=== PATIENT | male | born 1950 | race Caucasian/White ===

== ENCOUNTER 2018-07-03 10:29 | Outpatient (CLI) | payer MEDICARE, BC, SELFPAY ==
[2018-07-03 11:55] LABS: Hemoglobin A1C 7.3 % (4.5-6.2)
[2018-07-03 12:02] LABS: ALT 29 U/L (12-78); AST 21 U/L (15-37); Alkaline Phosphatase 105 U/L (46-116); Anion Gap 5.2 mmol/L (3-11); BUN 16 mg/dL (7-18); Bilirubin, Total 0.7 mg/dL (0.2-1.0); CO2 32.8 mmol/L (21.0-32.0); CREATININE 0.86 mg/dL (0.70-1.30); Calcium 9.1 mg/dL (8.5-10.1); Chloride 103 mmol/L (98-107); Cholesterol 165 mg/dL (50-200); Glucose 127 mg/dL (70-100); HDL Cholesterol 44 mg/dL (40-60); LDL CHOLESTEROL 99 mg/dL (<100); Potassium 4.7 mmol/L (3.5-5.1); Sodium 141 mmol/L (136-145); Total Protein 6.5 g/dL (6.4-8.2); Triglyceride 88 mg/dL (30-150)
== END 2018-07-03 10:49 ==
PROVIDERS: PCP Family Medicine; Visit Provider Family Medicine
DX: E10.39 Type 1 diabetes mellitus with other diabetic ophthalmic complication (principal); I25.10 Atherosclerotic heart disease of native coronary artery without angina pectoris
CPT/HCPCS: 36415; 80053; 80061; 83721; 83036

== ENCOUNTER 2018-07-28 07:23 | Outpatient (CLI) | payer MEDICARE, BC, SELFPAY ==
[2018-07-28 08:26] LABS: Hemoglobin A1C 7.1 % (4.5-6.2)
[2018-07-28 09:00] LABS: Glucose 140 mg/dL (70-100)
[2018-07-31 10:38] LABS: C-Peptide <0.1 ng/mL (1.1 - 4.4)
== END 2018-07-28 07:43 ==
PROVIDERS: PCP Family Medicine; Visit Provider Family Medicine
DX: E10.9 Type 1 diabetes mellitus without complications (principal)
CPT/HCPCS: 36415; 82947; 83036; 84681

== ENCOUNTER 2019-04-20 07:23 | Outpatient (CLI) | payer MEDICARE, BC, SELFPAY ==
[2019-04-20 08:18] LABS: Hemoglobin A1C 7.3 % (4.5-6.2)
[2019-04-20 09:22] LABS: ALT 24 U/L (16-63); AST 20 U/L (15-37); Albumin 3.9 g/dL (3.4-5.0); Alkaline Phosphatase 101 U/L (46-116); BUN 13 mg/dL (7-18); CREATININE 0.89 mg/dL (0.70-1.30); Calcium 8.9 mg/dL (8.5-10.1); Calculated LDL 107 mg/dL; Chloride 103 mmol/L (98-107); Cholesterol 165 mg/dL (50-200); Glucose 138 mg/dL (70-100); HDL Cholesterol 44 mg/dL (40-60); Potassium 4.4 mmol/L (3.5-5.1); Sodium 144 mmol/L (136-145); Total Protein 6.4 g/dL (6.4-8.2); Triglyceride 72 mg/dL (30-150)
[2019-04-20 09:32] LABS: Microalb ug/mg Crea 12.3 ug/mg Cr
== END 2019-04-20 07:43 ==
PROVIDERS: PCP Family Medicine; Visit Provider Family Medicine
DX: E10.39 Type 1 diabetes mellitus with other diabetic ophthalmic complication (principal); K57.92 Diverticulitis of intestine, part unspecified, without perforation or abscess without bleeding
CPT/HCPCS: 36415; 80053; 80061; 82043; 82570; 83036

== ENCOUNTER 2019-09-24 10:03 | Outpatient (CLI) | payer MEDICARE, BC, SELFPAY ==
[2019-09-24 13:24] LABS: Hemoglobin A1C 7.7 % (3.8-5.6)
== END 2019-09-24 10:23 ==
PROVIDERS: PCP Family Medicine; Visit Provider Family Medicine
DX: E11.9 Type 2 diabetes mellitus without complications (principal)
CPT/HCPCS: 36415; 83036

== ENCOUNTER 2020-04-18 08:37 | Outpatient (CLI) | payer MEDICARE, BC, SELFPAY ==
--- NOTE | 2020-04-18 08:41 | DI.CT_ITS ---
EXAM: CT ABDOMEN PELVIS W CLINICAL HISTORY: diverticulitis,k57.92,h/o abnl bone scan,compare sclerotic bone TECHNIQUE: Imaging Protocol: Axial computed tomography images with coronal and sagittal reformatted images were created and reviewed CONTRAST MATERIAL: Intravenous: Omnipaque 350 Contrast volume:99 Oral: Yes COMPARISON: CT ABD PELVIS WITH CONTRAST from 01/02/2018 FINDINGS: ABDOMEN: Lung Bases: Normal where visualized. Liver: Normal density. There are has stable hepatic lesions. Several of the lesions again show perip heral enhancement suggesting hepatic hemangiomas. No new hepatic lesions are seen. Portal, Superior Mesenteric, and Splenic Veins: Unremarkable. Gallbladder and Biliary Tract: No radiodense calculus or dilation. Pancreas: Normal density, no abnormal calcifications or inflammatory process. Spleen: Normal. Adrenals: No masses seen. Kidneys: Normal size, contour and axis. No radiodense stones or obstructive uropathy. No masses seen. Abdominal Aorta: Abdominal portion non-dilated. Atherosclerosis. Note is made of a retroaortic left renal vein. Bowel: No obstruction or bowel wall thickening. Appendix is unremarkable. Colonic diverticulosis but no evidence of acute diverticulitis. Peritoneal Cavity: No ascites, collection or mesenteric inflammatory response. Lymph Nodes: Within normal limits. Bones: There has been no change in the sclerotic appearance of the lumbar spine. Soft Tissues: Unremarkable. PELVIS: Bladder: Symmetric distention, no gross wall thickening. Reproductive Organs: Unremarkable as visualized. Lymph Nodes: Within normal limits. Bones: Please see above. IMPRESSION: 1. No change in appearance of the sclerotic areas of the lumbar spine 2. Colonic diverticulosis but no evidence of acute diverticulitis. 3. Stable hepatic lesions. RADIATION DOSE DELIVERED: 607.23mGy.cm Total DLP DATA REPOSITORY: All CT scans at this facility are submitted to the National Radiology Data Registry (NRDR) Dose Index Registry (DIR) with the [employer] (ACR). RADIATION OPTIMIZATION: All CT scans at this facility use at least one of these dose optimization te chniques: automated exposure control; mA and/or kV adjustment per patient size (includes targeted exa ms where dose is matched to clinical indication); or iterative reconstruction.
[2020-04-18] MEDS: Omnipaque 350 MG/ML 50 ML BTL IJ (09:59)
[2020-04-18] MEDS: Breeza Beverage 473 ML BTL PO ×2 (10:00→10:01)
[2020-04-18 10:12] LABS: Hemoglobin A1C 7.6 % (<5.7)
[2020-04-18 10:13] LABS: ALT 25 U/L (16-63); AST 20 U/L (15-37); Albumin 3.9 g/dL (3.4-5.0); Alkaline Phosphatase 92 U/L (46-116); Anion Gap 5.6 mmol/L (3-11); BUN 16 mg/dL (7-18); Bilirubin, Total 1.2 mg/dL (0.2-1.0); CO2 30.4 mmol/L (21.0-32.0); CREATININE 0.98 mg/dL (0.70-1.30); Calcium 8.9 mg/dL (8.5-10.1); Chloride 101 mmol/L (98-107); Glucose 202 mg/dL (74-106); Potassium 4.1 mmol/L (3.5-5.1); Sodium 137 mmol/L (136-145); Total Protein 6.8 g/dL (6.4-8.2)
[2020-04-18 11:11] LABS: COMMENT (LAB VIEW ONLY) 95.52 mg/dL; Microalb ug/mg Crea 26.8 ug/mg Cr
[2020-04-18] MEDS: Omnipaque 350 MG/ML 100 ML BTL IJ (12:14)
[2020-04-18] MEDS: Normal Saline - Diluent 50 ML VIAL IV (12:15)
[2020-04-21 12:14] LABS: Hepatitis C Ab w Rflx HCV PCR Negative (Negative)
== END 2020-04-18 08:57 ==
PROVIDERS: PCP Family Medicine; Visit Provider Family Medicine
DX: K57.30 Diverticulosis of large intestine without perforation or abscess without bleeding (principal); M89.8X8 Other specified disorders of bone, other site
CPT/HCPCS: 80053; 86803; 74177; 82043; 82570; 83036; J3490; Q9967

== ENCOUNTER 2020-12-16 09:32 | Outpatient (REF) | payer MEDICARE, BC, SELFPAY ==
[2020-12-16 14:01] LABS: ALT 41 U/L (16-63); AST 21 U/L (15-37); Alkaline Phosphatase 113 U/L (46-116); Anion Gap 3.8 mmol/L (3-11); BUN 20 mg/dL (7-18); Bilirubin, Total 0.7 mg/dL (0.2-1.0); CO2 34.2 mmol/L (21.0-32.0); Calcium 9.3 mg/dL (8.5-10.1); Calculated LDL 103 mg/dL (<100); Chloride 104 mmol/L (98-107); Cholesterol 164 mg/dL (<200); Glucose 135 mg/dL (74-106); HDL Cholesterol 43 mg/dL (40-60); Potassium 5.2 mmol/L (3.5-5.1); Sodium 142 mmol/L (136-145); Total Protein 6.6 g/dL (6.4-8.2); Triglyceride 94 mg/dL (<150)
[2020-12-16 15:00] LABS: COMMENT (LAB VIEW ONLY) 115.02 mg/dL; Microalb ug/mg Crea 16.8 ug/mg Cr
== END 2020-12-16 09:33 | disposition home or self-care (01) ==
LOC: LBN 09:32
PROVIDERS: PCP Family Medicine; Visit Provider Family Medicine
DX: E11.9 Type 2 diabetes mellitus without complications (principal); I10 Essential (primary) hypertension; I25.10 Atherosclerotic heart disease of native coronary artery without angina pectoris
CPT/HCPCS: 80053; 80061; 82043; 82570

== ENCOUNTER 2020-12-16 17:38 | Outpatient (CLI) | payer MEDICARE, BC, SELFPAY ==
--- NOTE | 2020-12-16 09:58 | DI.RAD_ITS ---
Exam(s) XR KNEE RT 3V AP,LAT,MARC EXAM: XR KNEE RT 3V AP,LAT,MARC CLINICAL HISTORY: r knee pain, M25,561. TECHNIQUE: 2D digital imaging was performed. COMPARISON: CR CHEST 2 VIEWS PA,LAT from 08/26/2015 FINDINGS: Tricompartment degenerative changes are present with joint space narrowing and periarticular spurring . The findings are most marked in the medial femoral tibial joint space. There is chondrocalcinosis . No acute fracture or dislocation. There are findings suggestive of prior ACL repair. Hypertrophi c changes are seen at the inferior patella. There does appear to be a small joint effusion. Vascula r calcifications are present. IMPRESSION: 1. No acute abnormality. 2. Degenerative changes of the knee. DATA REPOSITORY: RADIATION DOSE DELIVERED:
== END 2020-12-16 17:58 ==
PROVIDERS: PCP Family Medicine; Visit Provider Family Medicine
DX: M17.11 Unilateral primary osteoarthritis, right knee (principal)
CPT/HCPCS: 73562

== ENCOUNTER 2021-05-08 08:42 | Outpatient (CLI) | payer MEDICARE, BC, SELFPAY ==
--- NOTE | 2021-05-08 08:15 | DI.US_ITS ---
Exam(s) US LOWER EXTREMITY VENOUS RT EXAM: US LOWER EXTREMITY VENOUS RT CLINICAL HISTORY: r/o DVT to RT lower extremity,rt calf pain, m79.661. TECHNIQUE: Lower extremity venous ultrasound performed using grayscale, color-flow, and spectral Do ppler analysis. COMPARISON: CR XR KNEE RT 3V AP,LAT,MARC from 12/16/2020 CR XR KNEE RT 3V AP,LAT,MARC from 12/16/2020 FINDINGS: The common femoral, femoral and popliteal veins demonstrate normal compressibility, augmentation, and color Doppler. The posterior tibial veins are patent. No saphenous vein thrombosis or other superfi cial venous thrombosis is seen. No hematoma or Broderick's cyst is seen. In the area of the patient's p ain, there is an ovoid hypoechoic masslike area at the medial knee. It measures 4.1 x 1.8 x 3.1 cm. Previous x-ray showed severe degenerative changes of the medial femoral tibial joint and adjacent so ft tissue swelling. Findings could be related to degenerative changes. Soft tissue mass should also be considered. IMPRESSION: No evidence of DVT. 4 centimeter soft tissue area at the medial knee in the area of the patient's pain. An MRI could be p erformed for further evaluation. DATA REPOSITORY:
== END 2021-05-08 09:02 ==
PROVIDERS: PCP Family Medicine; Visit Provider Nurse Practitioner Family
DX: M79.661 Pain in right lower leg (principal); R93.6 Abnormal findings on diagnostic imaging of limbs
CPT/HCPCS: 93971

== ENCOUNTER 2021-05-12 11:50 | Outpatient (CLI) | payer MEDICARE, BC, SELFPAY ==
[2021-05-12 12:56] LABS: Abs Immature Grans 0.03 10^3/uL (0.0-0.06); Absolute Basophil Count 0.08 10^3/uL (0.0-0.2); Absolute Eosinophil Count 0.31 10^3/uL (0.0-0.7); Absolute Lymphocyte Count 1.48 10^3/uL (1.2-3.4); Absolute Monocyte Count 0.74 10^3/uL (0.1-0.8); Absolute Neutrophil Count 3.57 10^3/uL (1.2-6.7); Basophils % 1.3; HCT 49.7 % (40.0-50.0); Immature Grans % 0.5; Lymphocytes % 23.8; MCH 32.2 pg (27.0-33.0); MCHC 34.2 % (32.0-36.0); MCV 94.1 fL (80-95); MPV 10.5 fL (8.0-11.0); Monocytes % 11.9; Neutrophils % 57.5; Nucleated RBC 0 %; Platelet Count 238 10^3/uL (130-400); RBC 5.28 10^6/uL (4.36-5.78); RDW 11.4 % (11.8-14.1); RDW-SD 39.4 fL; WBC 6.21 10^3/uL (4.4-10.8)
[2021-05-12 13:02] LABS: ESR 4 mm/hr (0-20)
[2021-05-12 13:25] LABS: D-Dimer 1155 ng/mlFEU (<500)
[2021-05-12 13:31] LABS: BUN 17 mg/dL (7-18); CREATININE 0.9 mg/dL (0.70-1.30); Calcium 9.4 mg/dL (8.5-10.1); Glucose 184 mg/dL (74-106); Total Protein 6.7 g/dL (6.4-8.2)
[2021-05-12 13:32] LABS: ALT 27 U/L (16-63); AST 17 U/L (15-37); Albumin 4.2 g/dL (3.4-5.0); Alkaline Phosphatase 102 U/L (46-116); Anion Gap 3.9 mmol/L (3-11); Bilirubin, Total 1.1 mg/dL (0.2-1.0); CO2 34.1 mmol/L (21.0-32.0); Chloride 101 mmol/L (98-107); Potassium 4.9 mmol/L (3.5-5.1); Sodium 139 mmol/L (136-145)
== END 2021-05-12 11:51 | disposition home or self-care (01) ==
LOC: LOS 11:51
PROVIDERS: PCP Family Medicine; Referring Provider Family Medicine; Visit Provider Family Medicine
DX: M79.89 Other specified soft tissue disorders; R22.40 Localized swelling, mass and lump, unspecified lower limb
CPT/HCPCS: 80053; 85652; 85025; 85379; 86140

== ENCOUNTER 2021-05-13 00:52 | Outpatient (CLI) | payer MEDICARE, BC, SELFPAY ==
--- NOTE | 2021-05-13 07:15 | DI.US_ITS ---
Exam(s) US LOWER EXTREMITY VENOUS RT EXAM: US LOWER EXTREMITY VENOUS RT CLINICAL HISTORY: r leg swelling, 1st US neg,M79.89,CONCERN FOR DEVELOPING DVT TECHNIQUE: Grayscale, color, and doppler imaging of the deep venous system of the right lower extrem ity was performed. COMPARISON: CR XR KNEE RT 3V AP,LAT,MARC from 12/16/2020 US US LOWER EXTREMITY VENOUS RT from 05/08/2021 FINDINGS: There is no evidence of intraluminal thrombus and there is normal compression and augmentation demons trated within the common femoral vein, femoral vein, and popliteal vein. In the ipsilateral calf the interrogated veins also exhibit normal compression/ augmentation properti es. The ipsilateral saphenofemoral junction is patent. Again noted is a previously described mass in the medial aspect of the right knee measuring approxima tely 4 x 2 x 3 cm, unchanged from 05/08/2021. IMPRESSION: 1. No evidence of DVT in the right lower extremity. 2. Unchanged 4 x 2 x 3 cm mass on the medial aspect of the right knee. Recommend MRI for further study of this para-articular finding-mass. MRI will add both significant sensitivity as to what this finding is.
--- NOTE | 2021-05-13 14:15 | DI.CT_ITS ---
Exam(s) CT CHEST PE CTA EXAM: CT CHEST PE CTA CLINICAL HISTORY: ? pe, elevated d dimer, swelling of lower leg. TECHNIQUE: Imaging Protocol: Axial CT angiography was performed with multi-slice acquisition and mu lti-planar and/or 3D reconstructions. CONTRAST MATERIAL: Intravenous: Omnipaque 350 Contrast volume:100 ml COMPARISON: CR CHEST 2 VIEWS PA,LAT from 08/26/2015 CR LEFT SHOULDER COMPLETE from 07/20/2017 CR LEFT SHOULDER COMPLETE from 07/20/2017 CR RIGHT SHOULDER COMPLETE from 07/20/2017 CR RIGHT SHOULDER COMPLETE from 07/20/[address] ABDOMEN PELVIS W from 04/18/2020 FINDINGS: Pulmonary Arteries: No evidence of filling defect to suggest pulmonary emboli. Tracheobronchial tree: Patent where visualized. Mediastinum and Haily: No dominant adenopathy or fluid collection. Pulmonary parenchyma: No consolidation or dominant measurable mass. No architectural distortion. Pleura: No effusion or pneumothorax. Heart: The heart is not dilated. coronary artery calcifications and/or stents are seen. Aorta: Thoracic aorta non-dilated. Mild atherosclerotic changes. Upper abdomen: Unremarkable. Bones: Degenerative disc changes. Soft tissues: Mild bilateral gynecomastia. IMPRESSION: No evidence of pulmonary embolism or other acute abnormality.. RADIATION DOSE DELIVERED: 388.74mGy.cm Total DLP DATA REPOSITORY: All CT scans at this facility are submitted to the National Radiology Data Registry (NRDR) Dose Index Registry (DIR) with the [employer] (ACR). RADIATION OPTIMIZATION: All CT scans at this facility use at least one of these dose optimization te chniques: automated exposure control; mA and/or kV adjustment per patient size (includes targeted exa ms where dose is matched to clinical indication); or iterative reconstruction.
[2021-05-13] MEDS: Normal Saline - Diluent 50 ML VIAL IV (16:37)
[2021-05-13] MEDS: Omnipaque 350 MG/ML 100 ML BTL IJ (16:37)
--- NOTE | 2021-05-13 17:06 | DI.VRAD_ITS ---
PROCEDURE INFORMATION: Exam: CTA Chest With Contrast Exam date and time: 05/13/2021 2:26 PM Age: 71 years old Clinical indication: Other: ? Pe, elevated d dimer, swelling of lower leg TECHNIQUE: Imaging protocol: Computed tomographic angiography of the chest with contrast. 3D rendering (Not supervised by radiologist): MIP and/or 3D reconstructed images were created by the technologist. Contrast material: OMNIPAQUE 350; Contrast volume: 100 ml; Contrast route: INTRAVENOUS (IV); COMPARISON: CT ABDOMEN PELVIS W 04/18/2020 12:07 PM FINDINGS: Pulmonary arteries: Unremarkable. No pulmonary emboli. Aorta: Unremarkable. No aortic aneurysm. No aortic dissection. Lungs: Unremarkable. No consolidation. No masses. Pleural spaces: Unremarkable. No pneumothorax. No pleural effusion. Heart: Unremarkable. No cardiomegaly. No pericardial effusion. Lymph nodes: Unremarkable. No enlarged lymph nodes. Liver: The known enhancing hepatic lesions not well visualized on this study. Bones/joints: Unremarkable. No acute fracture. Soft tissues: Unremarkable. IMPRESSION: No evidence for pulmonary embolism. Dictated and Authenticated by: Edmundo Nelson MD. Ordering:NGOZI Duran MD
== END 2021-05-13 01:12 ==
PROVIDERS: PCP Family Medicine; Visit Provider Family Medicine
DX: M79.89 Other specified soft tissue disorders (principal); R79.89 Other specified abnormal findings of blood chemistry
CPT/HCPCS: 71275; 93971; J3490

== ENCOUNTER 2021-05-22 01:51 | Outpatient (CLI) | payer MEDICARE, BC, SELFPAY ==
--- NOTE | 2021-05-22 07:30 | DI.MRI_ITS ---
Exam(s) MR LOWER EXTREMITY RT WO/W MR LOWER JOINT RT WO/W EXAM: MR LOWER EXTREMITY RT WO/W CLINICAL HISTORY: swelling of leg,rt calf pain,. TECHNIQUE: Multiplanar multisequence MRI was performed. CONTRAST MATERIAL: IV Contrast: mL of Dotarem contrast administered. COMPARISON: Plain films dated December 22. Lower extremity ultrasound 08 May and 13 May 202 1 FINDINGS: BONES: No evidence of fracture. No evidence of suspicious bone lesion. Joints: Small to moderate-sized joint effusion with significant synovial enhancement. No definite hem osiderin deposition.. Severe degenerative changes of the medial femoral tibial joint with cartilage t hinning and irregularity as well as periarticular spurring. Severe cartilage thinning at the patello femoral joint. LIGAMENTS: Prior ACL repair appears intact. Posterior cruciate ligament and extensor mechanism appe ars intact. The medial and lateral collateral ligaments are intact. Menisci: Severe degenerative changes of the medial meniscus. Lateral meniscus shows mild degenerativ e changes. SOFT TISSUES: Adjacent lobulated fluid collections at the medial aspect of the tibia with some debris and peripheral enhancement. 1.5 x 1.9 x 4 cm. No solid mass visible. Synovial enhancement seen thro ughout.. Calcification anterior to the patella. Mild subcutaneous edema is seen in the medial aspect of the lower leg. Normal muscle signal and marrow signal in the lower leg. IMPRESSION: Severe degenerative changes of the medial femoral tibial joint. Adjacent lobulated peripherally enhan cing fluid collections could be related to pes anserine bursitis versus meniscal cysts. There is also diffuse synovial enhancement. Infection is not excluded. No solid masses identified. DATA REPOSITORY:
[2021-05-22] MEDS: Normal Saline Flush 10 ML SYR IVP (10:01)
[2021-05-22] MEDS: Gadoterate meglumine 20 ML VIAL 14 ML IVP (10:02)
== END 2021-05-22 02:11 ==
PROVIDERS: PCP Family Medicine; Visit Provider Nurse Practitioner Family
DX: M25.561 Pain in right knee (principal); M17.11 Unilateral primary osteoarthritis, right knee; M79.89 Other specified soft tissue disorders; M79.661 Pain in right lower leg
CPT/HCPCS: 73720; 73723

== ENCOUNTER → 2021-06-10 07:50 | Outpatient (BNVA) | payer MEDICARE, BC, SELFPAY | PROVIDERS: PCP Family Medicine; Referring Provider Family Medicine | DX: M17.31 Unilateral post-traumatic osteoarthritis, right knee (principal) | CPT/HCPCS: 20610; 99203; J1040 ==

== ENCOUNTER → 2021-12-04 08:18 | Outpatient (BNVA) | payer MEDICARE, BC, SELFPAY | PROVIDERS: PCP Family Medicine; Referring Provider Family Medicine; Visit Provider Physician Assistant | DX: M17.31 Unilateral post-traumatic osteoarthritis, right knee (principal); M70.51 Other bursitis of knee, right knee; M70.41 Prepatellar bursitis, right knee | CPT/HCPCS: 20610; J1030 ==

== ENCOUNTER 2022-01-22 02:29 | Outpatient (CLI) | payer MEDICARE, BC, SELFPAY ==
[2022-01-22 07:38] LABS: Hemoglobin A1C 6.9 % (<5.7)
[2022-01-22 08:11] LABS: ALT 30 U/L (16-63); AST 16 U/L (15-37); Albumin 4.1 g/dL (3.4-5.0); Alkaline Phosphatase 94 U/L (46-116); Anion Gap 7.4 mmol/L (3-11); BUN 19 mg/dL (7-18); Bilirubin, Total 0.8 mg/dL (0.2-1.0); CO2 32.6 mmol/L (21.0-32.0); Calcium 9.1 mg/dL (8.5-10.1); Calculated LDL 114 mg/dL (<100); Chloride 102 mmol/L (98-107); Cholesterol 176 mg/dL (<200); Glucose 104 mg/dL (74-106); HDL Cholesterol 49 mg/dL (40-60); Potassium 3.8 mmol/L (3.5-5.1); Sodium 142 mmol/L (136-145); Total Protein 6.9 g/dL (6.4-8.2); Triglyceride 69 mg/dL (<150)
== END 2022-01-22 02:30 | disposition home or self-care (01) ==
LOC: LBO 02:30
PROVIDERS: PCP Family Medicine; Visit Provider Family Medicine
DX: E10.39 Type 1 diabetes mellitus with other diabetic ophthalmic complication (principal)
CPT/HCPCS: 36415; 80053; 80061; 83036

== ENCOUNTER 2022-07-19 11:04 | Outpatient (REF) | payer MEDICARE, BC, SELFPAY ==
[2022-07-19 14:35] LABS: COMMENT (LAB VIEW ONLY) 112.52 mg/dL; Microalb ug/mg Crea 27.3 ug/mg Cr
== END 2022-07-19 11:05 | disposition home or self-care (01) ==
LOC: LBN 11:04
PROVIDERS: PCP Family Medicine; Visit Provider Family Medicine
DX: E11.9 Type 2 diabetes mellitus without complications (principal)
CPT/HCPCS: 82043; 82570

== ENCOUNTER 2022-10-04 13:19 | Outpatient (CLI) | payer MEDICARE, BC, SELFPAY ==
--- NOTE | 2022-10-04 11:15 | DI.RAD_ITS ---
Exam(s) XR SHOULDER RT COMPLETE 2+V EXAM: XR SHOULDER RT COMPLETE 2+V CLINICAL HISTORY: r shoulder pian, rotator cuff arthropathy, M25.511, M12.819. TECHNIQUE: 2D digital imaging was performed. COMPARISON: No exams were available for comparison FINDINGS: Four views: No evidence of fracture or dislocation or abnormal soft tissue calcifications in the mid-medial subac romial space. There is, however, small calcific density immediately adjacent to the greater tuberosity consistent w ith probable calcific tendinitis of the rotator cuff mechanism at this level. Subacromial space is n ot diminished. There are no obvious degenerative changes in the glenohumeral joint. Mild-moderate d egenerative changes in the AC joint IMPRESSION: Calcific rotator cuff tendinitis. Small calcification noted immediately adjacent to the greater tube rosity at the supraspinatus foot pad insertion site. DATA REPOSITORY: RADIATION DOSE DELIVERED:
== END 2022-10-04 13:39 ==
LOC: DI 13:20
PROVIDERS: PCP Family Medicine; Visit Provider Family Medicine
DX: M25.511 Pain in right shoulder (principal); M12.811 Other specific arthropathies, not elsewhere classified, right shoulder; M75.31 Calcific tendinitis of right shoulder
CPT/HCPCS: 73030

== ENCOUNTER 2022-12-06 08:44 | Emergency (ER) | payer MEDICARE, BC, SELFPAY ==
[2022-12-06] VITALS (52 sets, daily range): BP systolic 126–150; BP diastolic 64–86; PULSE 73–85; RESP 7–23; TEMP 36.6; O2SAT 96–99
--- NOTE | 2022-12-06 08:45 | RT.EKG_ITS ---
APPROVED REPORT Exam: Resting ECG Reason for Exam: chest pain Patient Location: E HR:81 bpm ECG Measurements Heart Rate 81 AXIS WY 146 P 71 QRSd 91 QRS 40 QT 382 T 43 QTc 443 Conclusion Sinus rhythm...normal P axis, V-rate 60- 99
--- NOTE | 2022-12-06 09:13 | ED.GENADUL_ITS ---
Discharge Plan Disposition Patient Disposition: Home Condition: Stable Discharge Details Clinical Impression: Atypical chest pain Primary Care Provider: Renee Tatum ED Provider: Lucinda Esquivel Home Meds and New Rx's Prescriptions: Continued Shingrix (PF) 50 mcg/0.5 mL suspension for reconstitution 0.5 ml IM ONCE Qty: 1 1RF Rx Instructions: as a single dose. Repeat in 2 months ciclopirox 8 % solution 1 applic topical DAILY 90 Days Qty: 6.6 5RF Rx Instructions: Apply to affected toenails daily. No-Sting Skin-Prep Towelette 1 towel topical 8XD Qty: 300 5RF Metamucil (sugar) Powder 1 tbsp PO DAILY aspirin 325 MG tablet 1 tab PO DAILY Patient Comments: 01/10/18- Holding for now, while on abx, per patient. aj ibuprofen 200 MG tablet 400 mg PO BID PRN cholecalciferol (vitamin D3) [Vitamin D3] 2,000 UNIT capsule 2,000 unit PO DAILY pb sensors 1 unit SQ q 10 days PRNQty: 3 11RF Rx Instructions: E10.8 (DME) Blood Glucose Test Strip 1 ea Miscellaneous 6 times daily Qty: 800 5RF Rx Instructions: AccuCheck Guide Test Strip. E10.65. TESTS 8X/ day. DIAGNOSIS CODE E10.65; E10.8 metoprolol succinate 25 mg tablet extended release 24 hr 25 mg PO DAILY Qty: 90 5RF lisinopril 5 mg tablet 5 mg PO DAILY Qty: 90 12RF atorvastatin 20 mg tablet 20 mg PO DAILY Qty: 90 3RF insulin aspart U-100 [Novolog U-100 Insulin aspart] 100 unit/mL solution 70 unit subcut DAILY Qty: 6 12RF Rx Instructions: VIA pump. E10.8; up to 70 units daily Discharge Instructions Instructions: Chest Pain (ED) Additional Instructions: As we discussed, your work-up here today is reassuring. However, I am still not clear what is going on during these episodes at night and would like to evaluate you further with secured entrance monitor. Please follow recommendations by respiratory therapy. Please follow-up with primary care in 1 week for reevaluation. If you develop increased pain, shortness of breath or other new/worsening symptoms please seek care urgently once again. Referrals: Renee Tatum MD, [place] [Primary Care Provider] - Discharge Orders Other Ambulatory Orders: Cardiac Event Recorder (Routine) Timeframe: 1 Day Facility: [facility] - Location: Respiratory Therapy Ordered By: Lucinda Esquivel Discharge Data Discharge Date/Time-TO BE ENTERED AT DEPARTURE: 12/06/22 14:10 Medical Decision Making Patient is a pleasant 72-year-old male, accompanied by his , presenting today with chief complaint of intermittent chest discomfort. He states that for the past 1 to 2 weeks he is been awoken at night, typically around 2 AM when he has to urinate, with chest discomfort. States that he typically is getting up to urinate and then begins noticing some substernal chest pressure. He reports that initially this was happening infrequently but is now happening nightly. Typically, this last for few minutes and he finds that certain positions help alleviate his discomfort and he is symptom-free for the rest of the day. This is not associated with times you are eating. Reports that he typically goes to bed around 10 PM and wakes up around 2. This morning comes emergency department as he began developing this chest discomfort once again after being awake. He states that he was sitting and doing wordle when he began developing the same discomfort that lasted approximately 15 to 20 minutes. Patient reports he does take full dose aspirin every morning. He did take it this morning. He denies any nausea or vomiting. No weakness. Denies any dizziness. Denies any radiation of pain. Patient does have history of cardiac stents which were placed about 15 years ago. He states that this morning the chest discomfort felt similar but that he has not had any exertional component. He states that he has been gardening and has not had any shortness of breath out of the expected and has not had any chest discomfort when exerting himself. Patient is type I diabetic and states that he has been controlling this with the pump. On exam, patient appears nontoxic. He is resting comfortably no acute distress. He is hemodynamically stable. ECG was obtained and reviewed by Dr. Williamson with normal sinus rhythm, no acute ischemic patterns appreciated. Lungs are clear, normal cardiac exam with normal splitting of S1-S2. No pain with abdominal palpation. Some mild discomfort elicited with palpation of the sternum. No rash or discoloration. No recent trauma. No lower extremity edema. Some spider veins are noted on his lower extremities, more so on the right side than the left but no swelling, calf pain, negative Homans' sign. 2+ distal pulses. At this time, while ACS is on my differential, I find this less likely as he is not having any significant exertional component is not experiencing anything when he is exerting himself. However, patient does have a history of ACS. He does not routinely see cardiology. Will screen with troponin, obtain chest x- ray. Also consider potential pericarditis as it does sound like when he is leaning forward his pain does improve when he does have this discomfort. He did recently have some cough and postnasal drip. However, patient associates this more with allergies. also reports that he has been more rundown this sounds like a chronic issue that has been worsening over the past few years as he has become more sedentary in senior care. However, with his increased fatigue, will obtain thyroid as well. He is not having any palpitations but as he is having some of these symptoms more at night, I would consider a Holter monitor if these things are unrevealing as it is unclear if he is waking d/t the symptoms or after he is up and around to the bathroom. Labs reviewed, no acute abnormoality. Awaiting repeat troponin. Reevaluated the patient, resting comfortably without recurrent symptoms. SBP now in the 120s. Repeat troponin remains within normal limits. Chest x-ray reviewed by radiologist without acute abnormalities noted. Discussed these findings with the patient. He continues to be asymptomatic. While he certainly has risk factors, particularly as he does have a history of ACS, this occurring at night after he wakes, has made less concerned for acute coronary syndrome. He is able to work in his garden and exert himself without this onset of chest discomfort. I do feel that it would be appropriate to apply a Holter monitor for further evaluation of these episodes as he does report that he has had some palpitations with these. Again, his labs are not consistent with pericarditis, his history and exam are not consistent with aortic dissection. If the monitor is normal, would consider a stress test but again, less likely. Advised patient to follow-up with primary care in the next week. Strict return precautions were given. Holter monitor was applied here by respiratory therapy. All of his questions or concerns were addressed and he is in agreement this plan. HPI General Date/Time Provider Initiated Documentation: 12/06/22 08:46 . Limitations to Documentation: no limitations . Information obtained by: patient, family (), RN notes reviewed and old records reviewed . History of Present Illness 72 year old M presents to the emergency department with the chief complaint of intermittent chest pressure at night, described as moderate, with intensity rated at 6 (currently 0, 6 at maximal). Quality is described as other (pressure), and is localized to the chest. Patient reports no radiation. Patient started experiencing this week(s) and it has been intermittent. No relieving factors improve symptom(s), Other factors that worsen symptoms (occurs at night when he wakes, normal occurrence, to use the restroom) . Patient notes no other symptoms.. Patient did receive the following treatments prior to arrival, Aspirin Related Data Home Medications Medication Instructions Recorded Confirmed aspirin 325 mg tablet 1 tab PO DAILY 10/23/12 10/04/22 ibuprofen 200 mg tablet 400 mg PO BID PRN 10/23/12 10/04/22 cholecalciferol (vitamin D3) 50 2,000 unit PO DAILY 09/20/16 10/04/22 mcg (2,000 unit) capsule (Vitamin D3) psyllium seed (sugar) oral powder 1 tbsp PO DAILY 09/16/20 10/04/22 (Metamucil (sugar) oral powder) blood sugar diagnostic (Blood #800 strips 11/16/21 10/04/22 Glucose Test strips) ciclopirox 8 % topical solution 1 applic topical DAILY 05/11/22 10/04/22 onychomycosis 3 months #6.6 mL varicella-zoster glycoE vacc-[id number] 0.5 ml IM ONCE #1 ea 07/19/22 10/04/22 adj(PF) 50 mcg/0.5 mL IM susp, kit (Shingrix (PF)) hexamethyldisiloxane-acrylate 1 towel topical 8XD #300 ea 10/04/22 10/04/22 copolymers towelette (No-Sting Skin-Prep towelette) lisinopril 5 mg tablet 5 mg PO DAILY #90 tab-caps 10/22/22 metoprolol succinate 25 mg 25 mg PO DAILY #90 tabs 10/22/22 tablet,extended release 24 hr atorvastatin 20 mg tablet 20 mg PO DAILY #90 tab-caps 10/25/22 insulin aspart U-100 100 unit/mL 70 unit (0.7 mL) subcut DAILY #6 11/23/22 subcutaneous solution (Novolog vials U-100 Insulin aspart) Previous Rx's Medication Instructions Recorded blood sugar diagnostic (Blood #800 strips 11/16/21 Glucose Test strips) ciclopirox 8 % topical solution 1 applic topical DAILY 05/11/22 onychomycosis 3 months #6.6 mL varicella-zoster glycoE vacc-[id number] 0.5 ml IM ONCE #1 ea 07/19/22 adj(PF) 50 mcg/0.5 mL IM susp, kit (Shingrix (PF)) hexamethyldisiloxane-acrylate 1 towel topical 8XD #300 ea 10/04/22 copolymers towelette (No-Sting Skin-Prep towelette) lisinopril 5 mg tablet 5 mg PO DAILY #90 tab-caps 10/22/22 metoprolol succinate 25 mg 25 mg PO DAILY #90 tabs 10/22/22 tablet,extended release 24 hr atorvastatin 20 mg tablet 20 mg PO DAILY #90 tab-caps 10/25/22 insulin aspart U-100 100 unit/mL 70 unit (0.7 mL) subcut DAILY #6 11/23/22 subcutaneous solution (Novolog vials U-100 Insulin aspart) Allergies Allergy/AdvReac Type Severity Reaction Status Date / Time Opioids - Morphine Analogues AdvReac Verified 12/06/22 08:52 pollen Allergy Uncoded 12/06/22 08:52 General Stated Complaint: Chest Pain SANJAY: 3 Review of Systems Constitutional Constitutional: Reports as per HPI, Denies chills, Denies fever(s), Denies lethargy and Denies poor appetite Eyes Eyes: Denies change in vision ENT Ears, Nose, Mouth, and Throat: Denies dizziness Cardiovascular Cardiovascular: Reports as per HPI and Denies dyspnea Respiratory Respiratory: Reports as per HPI, Denies chest congestion, Denies cough, Denies pain with cough and Denies dyspnea Gastrointestinal Gastrointestinal: Reports as per HPI, Denies abdominal pain, Denies diarrhea, Denies nausea and Denies vomiting Genitourinary Genitourinary: Denies system reviewed and no additional complaints, except as documented (denies change in urinary habits) Musculoskeletal Musculoskeletal: Reports as per HPI and Denies back pain Integumentary/Breasts Skin/Breast: Reports as per HPI and Denies rash Neurologic Neurologic: Reports as per HPI and Denies dizziness PFSH All Active Problems (Updated 12/06/22 @ 13:36 by KIN Crystal) Palpitations (Acute) Atypical chest pain (Acute) Type 1 diabetes mellitus (Acute) Rotator cuff arthropathy (Acute) Shoulder pain, right (Acute) Pain, foot (Acute) Corns and callosities (Acute) Nail dystrophy (Acute) Pes anserinus bursitis of right knee (Acute) Steroid injection: 12/04/2021 Eczema (Acute) Flexion deformity, left finger joints (Acute) Skin lesion (Acute) Post-traumatic osteoarthritis of right knee (Acute) Steroid injection: 06/10/2021 Elevated d-dimer (Acute) Swelling of lower leg (Acute) Mass of knee (Acute) Asthma (Acute) Liver cyst (Acute 09/03/15) Type 1 diabetes mellitus with ophthalmic manifestation (Acute 06/10/14) Hyperlipidemia (Acute 02/20/13) Essential hypertension (Acute 06/20/13) Diverticulitis (Acute 01/02/18) Degenerative arthritis of cervical spine (Acute 11/28/14) Chronic left shoulder pain (Acute 07/19/17) Background diabetic retinopathy (Acute) 04/22/15; [facility]; MILD 04/22/16; [facility]; MILD 04/26/17; [facility]; MILD 11/03/17; [facility]; MILD ASCVD (arteriosclerotic cardiovascular disease) (Acute 02/20/13) ECHO EF 60%-LV SEPTAL WALL HYPOKINESIS Medical History Abnormal CT scan (01/10/18) Asthma Carcinoma of prostate S/P RADICAL PROSTATECTOMY Cough Intervertebral disc disorder of lumbar region with myelopathy Kidney stone 06/06/18 calcium oxylate s/p surgery Kidney stone (06/06/08) Left wrist pain Liver cyst 09/03/15 CT/US/MRI Melena 06/06/08 neg colonoscopy Melena (06/06/08) Pre-op evaluation 05/05/15 Unilateral inguinal hernia right; s/p surgery Unilateral inguinal hernia (02/20/13) Vocal cord dysfunction (02/04/15) Surgical History History of intravascular stent placement History of intravascular stent placement Prostatectomy (~2002) Repair of inguinal hernia (01/23/13) DR. PINO; RIGHT Repair, ACL S/P ACL repair S/P inguinal hernia repair 07/04/12 Dr. Pino; right S/P prostatectomy 07/04/02 S/P vasectomy Status post inguinal hernia repair Status post prostatectomy Status post repair of anterior cruciate ligament Status post vasectomy Stent placement Vasectomy Family History Father Heart disease Maternal Grandfather Heart disease Paternal Grandfather Heart disease Mother Heart disease Brother Substance abuse Alcohol abuse Depression Heart disease Hyperlipidemia Son No problems noted. Daughter No problems noted. Daughter No problems noted. Maternal Grandmother No problems noted. Paternal Grandmother No problems noted. Social History Smoking/Tobacco Use Status: Former Tobacco Use Quit Date: 07/04/79 Smoking risk assessment performed?: Yes Alcohol Intake: current Alcohol Intake frequency: a few times a week Alcohol type: beer Drug use: Never Substance use type: marijuana Caregiver/Support person: No Household members: spouse Housing: house Communication Needs: None Pets and animals: Yes Pets and animals: cat(s) and dog(s) Do you think of yourself as: straight/heterosexual Current gender identity: male What is your relationship status?: Panel score (0-1 are the most socially isolated patients): 1 Special vianey needs: No Seatbelt use: always Helmet use: Yes Helmet use: sometimes 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 Do you feel safe in your relationship?: Yes Exam Const General: cooperative, healthy appearing, comfortable, no acute distress and well developed Nutritional Appearance: average body habitus and well nourished Orientation: alert, awake and oriented x3 HENMT Head: normal to inspection Ears: hearing grossly normal bilaterally Mouth: moist mucous membranes Chest Chest: normal inspection of the chest, normal palpation of entire chest wall and no crepitus Resp Effort & Inspection: normal respiratory effort, able to speak in complete sentences and no respiratory distress Auscultation: clear to auscultation bilaterally, no rales, no rhonchi and no wheezes Cardio Rate: regular rate Rhythm: regular rhythm Heart Sounds: S1 normal and S2 normal GI Inspection: normal to inspection, no edema and non-distended Palpation: soft, no hepatosplenomegaly, not firm, no guarding, not rigid and nontender Auscultation: normal bowel sounds Skin General skin exam: no rashes or lesions noted Trauma: no lacerations or abrasions Neuro General: patient alert, patient awake and patient oriented x3 Cognition: normal cognition Speech: speech normal Gait: normal gait Extrem General: normal to inspection, capillary refill normal, no pedal edema, no calf tenderness and normal gait Psych Appearance: grossly normal and well kempt Mental Status: mental status grossly normal Speech and Movement: speech and movement normal Course Vital Signs Vital signs: Vital Signs Temperature 36.6 C 12/06/22 08:46 Pulse 85 12/06/22 08:46 Respiratory Rate 16 12/06/22 08:46 Blood Pressure 150/79 H 12/06/22 08:46 Pulse Oximetry 98 12/06/22 08:46 Temperature 36.6 C 12/06/22 08:46 Temperature Source Skin 12/06/22 08:46 Pulse 85 12/06/22 08:46 Respiratory Rate 16 12/06/22 08:46 Blood Pressure 150/79 H 12/06/22 08:46 Blood Pressure Position Sitting 12/06/22 08:46 Pulse Oximetry 98 12/06/22 08:46 Oxygen Delivery Method Room Air 12/06/22 08:46 Oxygen Flow Rate 0 12/06/22 08:46 Pain Level 6 12/06/22 08:46
[2022-12-06 09:31] LABS: Abs Immature Grans 0.03 10^3/uL (0.0-0.06); Absolute Basophil Count 0.07 10^3/uL (0.0-0.2); Absolute Eosinophil Count 0.25 10^3/uL (0.0-0.7); Absolute Lymphocyte Count 1.07 10^3/uL (1.2-3.4); Absolute Monocyte Count 0.65 10^3/uL (0.1-0.8); Absolute Neutrophil Count 3.57 10^3/uL (1.2-6.7); Basophils % 1.2; Eosinophils % 4.4; HCT 49.1 % (40.0-50.0); Immature Grans % 0.5; MCHC 34.6 % (32.0-36.0); MCV 92 fL (80-95); MPV 10.1 fL (8.0-11.0); Monocytes % 11.5; Neutrophils % 63.4; Platelet Count 212 10^3/uL (130-400); RBC 5.32 10^6/uL (4.36-5.78); RDW 11.6 % (11.8-14.1); RDW-SD 39.3 fL; WBC 5.64 10^3/uL (4.4-10.8)
[2022-12-06 09:35] LABS: ESR 2 mm/hr (0-20)
--- NOTE | 2022-12-06 09:38 | DI.RAD_ITS ---
Exam(s) XR CHEST 2V PA LATERAL EXAM: XR CHEST 2V PA LATERAL CLINICAL HISTORY: CP TECHNIQUE: 2D digital imaging was performed of the chest. Two images were obtained. PA and lateral views were obtained. COMPARISON: CR CHEST 2 VIEWS PA,LAT from 08/26/2015 FINDINGS: MEDIASTINUM: Normal. HEART: Normal. PULMONARY VASCULATURE: Normal. LUNGS: Clear. PLEURAL SPACE: No pleural effusion or pneumothorax. BONE:Within normal limits for the patient's age. OTHER FINDINGS:Normal. IMPRESSION: No acute pulmonary findings. DATA REPOSITORY: RADIATION DOSE DELIVERED:
[2022-12-06 09:56] LABS: ALT 25 U/L (16-63); AST 18 U/L (15-37); Alkaline Phosphatase 114 U/L (46-116); Anion Gap 4.2 mmol/L (3-11); BUN 14 mg/dL (7-18); Bilirubin, Total 0.8 mg/dL (0.2-1.0); C-Reactive Protein 0.15 mg/dL (0.0-0.3); CO2 32.8 mmol/L (21.0-32.0); CREATININE 0.9 mg/dL (0.70-1.30); Calcium 9.1 mg/dL (8.5-10.1); Chloride 102 mmol/L (98-107); Estimated GFR 91.31 (mL/min/1.73m2); Glucose 171 mg/dL (74-106); Potassium 4.1 mmol/L (3.5-5.1); Sodium 139 mmol/L (136-145); Total Protein 6.9 g/dL (6.4-8.2); Troponin I < 50 ng/L (<or=60)
[2022-12-06 12:51] LABS: Troponin I < 50 ng/L (<or=60)
== END 2022-12-06 14:10 | disposition home or self-care (01) ==
PROVIDERS: Emergency Provider Physician Assistant; PCP Family Medicine
DX: R00.2 Palpitations; R07.89 Other chest pain; R06.02 Shortness of breath
CPT/HCPCS: 36415; 80053; 85652; 87426; 93005; 93270; 99283; 71046; 83735; 84484; 85025; 86140; 93010

== ENCOUNTER 2022-12-13 05:13 | Emergency (ER) | payer MEDICARE, BC, SELFPAY ==
[2022-12-13] VITALS (38 sets, daily range): BP systolic 69–140; BP diastolic 40–114; PULSE 0–91; RESP 10–26; TEMP 36.6; O2SAT 93–99
--- NOTE | 2022-12-13 05:15 | RT.EKG_ITS ---
APPROVED REPORT Exam: Resting ECG Reason for Exam: CHEST PAIN Patient Location: E HR:87 bpm ECG Measurements Heart Rate 87 AXIS NV 156 P 68 QRSd 91 QRS 24 QT 349 T 28 QTc 421 Conclusion Sinus rhythm...normal P axis, V-rate 60- 99 Probable left atrial enlargement...P >50mS, <-0.10mV V1 Low voltage, extremity leads...all extremity leads <0.5mV Physician: no stemi, unchanged from prior 12/06/22
--- NOTE | 2022-12-13 05:50 | ED.GENADUL_ITS ---
Discharge Plan Discharge Details Chief Complaint: Chest Pain Primary Care Provider: Renee Tatum ED Provider: Ray Jerome Home Meds and New Rx's Prescriptions: No Action Shingrix (PF) 50 mcg/0.5 mL suspension for reconstitution 0.5 ml IM ONCE Qty: 1 1RF Rx Instructions: as a single dose. Repeat in 2 months ciclopirox 8 % solution 1 applic topical DAILY 90 Days Qty: 6.6 5RF Rx Instructions: Apply to affected toenails daily. No-Sting Skin-Prep Towelette 1 towel topical 8XD Qty: 300 5RF Metamucil (sugar) Powder 1 tbsp PO DAILY aspirin 325 MG tablet 1 tab PO DAILY Patient Comments: 01/10/18- Holding for now, while on abx, per patient. aj ibuprofen 200 MG tablet 400 mg PO BID PRN cholecalciferol (vitamin D3) [Vitamin D3] 2,000 UNIT capsule 2,000 unit PO DAILY pb sensors 1 unit SQ q 10 days PRNQty: 3 11RF Rx Instructions: E10.8 (DME) Blood Glucose Test Strip 1 ea Miscellaneous 6 times daily Qty: 800 5RF Rx Instructions: AccuCheck Guide Test Strip. E10.65. TESTS 8X/ day. DIAGNOSIS CODE E10.65; E10.8 metoprolol succinate 25 mg tablet extended release 24 hr 25 mg PO DAILY Qty: 90 5RF lisinopril 5 mg tablet 5 mg PO DAILY Qty: 90 12RF atorvastatin 20 mg tablet 20 mg PO DAILY Qty: 90 3RF insulin aspart U-100 [Novolog U-100 Insulin aspart] 100 unit/mL solution 70 unit subcut DAILY Qty: 6 12RF Rx Instructions: VIA pump. E10.8; up to 70 units daily Medical Decision Making 72-year-old male with a past medical history type 1 diabetes currently on insulin, coronary artery disease with 3 stents 10 years ago, hypertension, who presents today for evaluation of chest pain. Patient woke up at around 2 or 3 this morning, had tightness in his chest, heaviness, and an achy sensation. He has had the symptoms before, including on 12/06/2022 when he came in for evaluation of similar but more mild symptoms. Work-up at that time was negative. Today symptoms were similar but became more severe as the morning went on, escalating to an 8 out of 10. Symptoms had not gone to this extent in the past. He made the decision to come to the ER for further assessment. By the time he arrived to the ER his pain improved to around a 4 out of 10 without intervention. He denies any exertional discomfort, and for that matter states that he has performed multiple exertional activities over the last week or so without any significant discomfort. No new shortness of breath. He denies any tearing or ripping sensation. He does currently have a Zio patch on which has been recording him. He denies any other complaints at this time. No other modifying factors. He did have a bowel movement earlier this morning which was unremarkable. Exam demonstrates a well-appearing male, no acute distress. Vital signs stable. EKG shows no evidence of STEMI at this time. Symptoms are certainly atypical for ACS, however with the patient's history of cardiac disease this still obviously remains high in the differential. We will evaluate for this, get a D- dimer as well, evaluate for signs of heart strain, monitor closely and reassess. 7:44 AM Laboratory work-up demonstrates no white count bandemia or left shift. D-dimer is elevated. Troponin is normal. Thyroid function stable. proBNP is normal. Patient's chest pain seems to come and go. It does not appear to be particularly improved by nitroglycerin. We will get CTA imaging of the chest. Patient will be signed out to my colleague Dr. Vizcarra for follow-up on labs and imaging. HPI General Date/Time Provider Initiated Documentation: 12/13/22 05:25 . HPI Narrative: 72-year-old male with a past medical history type 1 diabetes currently on insulin, coronary artery disease with 3 stents 10 years ago, hypertension, who presents today for evaluation of chest pain. Patient woke up at around 2 or 3 this morning, had tightness in his chest, heaviness, and an achy sensation. He has had the symptoms before, including on 12/06/2022 when he came in for evaluation of similar but more mild symptoms. Work-up at that time was negative. Today symptoms were similar but became more severe as the morning went on, escalating to an 8 out of 10. Symptoms had not gone to this extent in the past. He made the decision to come to the ER for further assessment. By the time he arrived to the ER his pain improved to around a 4 out of 10 without intervention. He denies any exertional discomfort, and for that matter states that he has performed multiple exertional activities over the last week or so without any significant discomfort. No new shortness of breath. He denies any tearing or ripping sensation. He does currently have a Zio patch on which has been recording him. He denies any other complaints at this time. No other modifying factors. He did have a bowel movement earlier this morning which was unremarkable. Related Data Home Medications Medication Instructions Recorded Confirmed aspirin 325 mg tablet 1 tab PO DAILY 10/23/12 12/13/22 ibuprofen 200 mg tablet 400 mg PO BID PRN 10/23/12 12/13/22 cholecalciferol (vitamin D3) 50 2,000 unit PO DAILY 09/20/16 12/13/22 mcg (2,000 unit) capsule (Vitamin D3) psyllium seed (sugar) oral powder 1 tbsp PO DAILY 09/16/20 12/13/22 (Metamucil (sugar) oral powder) blood sugar diagnostic (Blood #800 strips 11/16/21 12/13/22 Glucose Test strips) ciclopirox 8 % topical solution 1 applic topical DAILY 05/11/22 12/13/22 onychomycosis 3 months #6.6 mL varicella-zoster glycoE [id number] 0.5 ml IM ONCE #1 ea 07/19/22 12/13/22 adj(PF) 50 mcg/0.5 mL IM susp, kit (Shingrix (PF)) hexamethyldisiloxane-acrylate 1 towel topical 8XD #300 ea 10/04/22 12/13/22 copolymers towelette (No-Sting Skin-Prep towelette) lisinopril 5 mg tablet 5 mg PO DAILY #90 tab-caps 10/22/22 12/13/22 metoprolol succinate 25 mg 25 mg PO DAILY #90 tabs 10/22/22 12/13/22 tablet,extended release 24 hr atorvastatin 20 mg tablet 20 mg PO DAILY #90 tab-caps 10/25/22 12/13/22 insulin aspart U-100 100 unit/mL 70 unit (0.7 mL) subcut DAILY #6 11/23/22 12/13/22 subcutaneous solution (Novolog vials U-100 Insulin aspart) Previous Rx's Medication Instructions Recorded blood sugar diagnostic (Blood #800 strips 11/16/21 Glucose Test strips) ciclopirox 8 % topical solution 1 applic topical DAILY 05/11/22 onychomycosis 3 months #6.6 mL varicella-zoster glycoE [id number] 0.5 ml IM ONCE #1 ea 07/19/22 adj(PF) 50 mcg/0.5 mL IM susp, kit (Shingrix (PF)) hexamethyldisiloxane-acrylate 1 towel topical 8XD #300 ea 10/04/22 copolymers towelette (No-Sting Skin-Prep towelette) lisinopril 5 mg tablet 5 mg PO DAILY #90 tab-caps 10/22/22 metoprolol succinate 25 mg 25 mg PO DAILY #90 tabs 10/22/22 tablet,extended release 24 hr atorvastatin 20 mg tablet 20 mg PO DAILY #90 tab-caps 10/25/22 insulin aspart U-100 100 unit/mL 70 unit (0.7 mL) subcut DAILY #6 11/23/22 subcutaneous solution (Novolog vials U-100 Insulin aspart) Allergies Allergy/AdvReac Type Severity Reaction Status Date / Time Opioids - Morphine Analogues AdvReac Verified 12/06/22 08:52 pollen Allergy Uncoded 12/06/22 08:52 General SANJAY: 3 Review of Systems All systems reviewed & are unremarkable except as noted in HPI and below PFSH All Active Problems Palpitations (Acute) Atypical chest pain (Acute) Type 1 diabetes mellitus (Acute) Rotator cuff arthropathy (Acute) Shoulder pain, right (Acute) Pain, foot (Acute) Corns and callosities (Acute) Nail dystrophy (Acute) Pes anserinus bursitis of right knee (Acute) Steroid injection: 12/04/2021 Eczema (Acute) Flexion deformity, left finger joints (Acute) Skin lesion (Acute) Post-traumatic osteoarthritis of right knee (Acute) Steroid injection: 06/10/2021 Elevated d-dimer (Acute) Swelling of lower leg (Acute) Mass of knee (Acute) Asthma (Acute) Liver cyst (Acute 09/03/15) Type 1 diabetes mellitus with ophthalmic manifestation (Acute 06/10/14) Hyperlipidemia (Acute 02/20/13) Essential hypertension (Acute 06/20/13) Diverticulitis (Acute 01/02/18) Degenerative arthritis of cervical spine (Acute 11/28/14) Chronic left shoulder pain (Acute 07/19/17) Background diabetic retinopathy (Acute) 04/22/15; [facility]; MILD 04/22/16; [facility]; MILD 04/26/17; [facility]; MILD 11/03/17; [facility]; MILD ASCVD (arteriosclerotic cardiovascular disease) (Acute 02/20/13) ECHO EF 60%-LV SEPTAL WALL HYPOKINESIS Medical History Abnormal CT scan (01/10/18) Asthma Carcinoma of prostate S/P RADICAL PROSTATECTOMY Cough Intervertebral disc disorder of lumbar region with myelopathy Kidney stone 06/06/18 calcium oxylate s/p surgery Kidney stone (06/06/08) Left wrist pain Liver cyst 09/03/15 CT/US/MRI Melena 06/06/08 neg colonoscopy Melena (06/06/08) Pre-op evaluation 05/05/15 Unilateral inguinal hernia right; s/p surgery Unilateral inguinal hernia (02/20/13) Vocal cord dysfunction (02/04/15) Surgical History History of intravascular stent placement History of intravascular stent placement Prostatectomy (~2002) Repair of inguinal hernia (01/23/13) DR. PINO; RIGHT Repair, ACL S/P ACL repair S/P inguinal hernia repair 07/04/12 Dr. Pino; right S/P prostatectomy 07/04/02 S/P vasectomy Status post inguinal hernia repair Status post prostatectomy Status post repair of anterior cruciate ligament Status post vasectomy Stent placement Vasectomy Family History Father Heart disease Maternal Grandfather Heart disease Paternal Grandfather Heart disease Mother Heart disease Brother Substance abuse Alcohol abuse Depression Heart disease Hyperlipidemia Son No problems noted. Daughter No problems noted. Daughter No problems noted. Maternal Grandmother No problems noted. Paternal Grandmother No problems noted. Social History Smoking/Tobacco Use Status: Former Tobacco Use Quit Date: 07/04/79 Smoking risk assessment performed?: Yes Alcohol Intake: current Alcohol Intake frequency: a few times a week Alcohol type: beer Drug use: Never Substance use type: marijuana Caregiver/Support person: No Household members: spouse Housing: house Communication Needs: None Pets and animals: Yes Pets and animals: cat(s) and dog(s) Do you think of yourself as: straight/heterosexual Current gender identity: male What is your relationship status?: Panel score (0-1 are the most socially isolated patients): 1 Special vianey needs: No Seatbelt use: always Helmet use: Yes Helmet use: sometimes Drive intox or ride w/intox auto crane driver: No Do you feel safe at home: Yes Do you feel safe in your relationship?: Yes Exam Narrative Exam Narrative: 1.Const: Well-nourished, Well-developed, appearing stated age 2.Eyes: PERRL, no conjunctival injection, and symmetrical lids. 3.ENT: Atraumatic external nose and ears. Moist MM. Neck: Symmetric, trachea midline, No thyromegaly. 4.CVS: +S1/S2, No murmurs or gallops. Peripheral pulses 2+ and equal in all extremities. Brisk capillary refill in all extremities. 5.RESP: Unlabored respiratory effort. Clear to auscultation bilaterally. No wheezes rales or rhonchi 6.GI: Soft, Nontender/Nondistended, No hepatosplenomegaly. No guarding or rebound. 7.MSK: Normocephalic/Atraumatic, Extremities w/o deformity or ttp No cyanosis or clubbing, Normal movement of all extremities 8.Skin: Warm, Dry. No rashes or lesions. 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 Sensation grossly intact, no focal neurologic deficits. 10.Psych: (AAO) x3. Appropriate mood and affect
[2022-12-13 06:18] LABS: Abs Immature Grans 0.03 10^3/uL (0.0-0.06); Absolute Basophil Count 0.05 10^3/uL (0.0-0.2); Absolute Eosinophil Count 0.28 10^3/uL (0.0-0.7); Absolute Lymphocyte Count 1.41 10^3/uL (1.2-3.4); Absolute Monocyte Count 0.71 10^3/uL (0.1-0.8); Absolute Neutrophil Count 2.87 10^3/uL (1.2-6.7); Basophils % 0.9; Eosinophils % 5.2; HCT 48.7 % (40.0-50.0); HGB 16.4 g/dL (13.5-17.5); Immature Grans % 0.6; Lymphocytes % 26.4; MCH 31.5 pg (27.0-33.0); MCHC 33.7 % (32.0-36.0); MCV 94 fL (80-95); MPV 10.4 fL (8.0-11.0); Monocytes % 13.3; Neutrophils % 53.6; Platelet Count 213 10^3/uL (130-400); RBC 5.21 10^6/uL (4.36-5.78); RDW 11.6 % (11.8-14.1); RDW-SD 39.8 fL; WBC 5.35 10^3/uL (4.4-10.8)
[2022-12-13] MEDS: Aspirin 81 MG CHEW 324 MG CH (06:24)
[2022-12-13] MEDS: Normal Saline 1,000 ML 1000 ML IV ×2 (06:25→07:55)
[2022-12-13 06:34] LABS: INR 0.9 (0.9-1.1); Prothrombin Time 9.6 sec (9.3-11.0)
[2022-12-13 06:44] LABS: ALT 24 U/L (16-63); AST 14 U/L (15-37); Albumin 3.8 g/dL (3.4-5.0); Alkaline Phosphatase 141 U/L (46-116); Anion Gap 5.4 mmol/L (3-11); BUN 26 mg/dL (7-18); Bilirubin, Total 0.4 mg/dL (0.2-1.0); CO2 30.6 mmol/L (21.0-32.0); CREATININE 1.1 mg/dL (0.70-1.30); Calcium 8.9 mg/dL (8.5-10.1); Chloride 101 mmol/L (98-107); Estimated GFR 71.77 (mL/min/1.73m2); Glucose 262 mg/dL (74-106); NT-proBNP 68 pg/mL (<300); Potassium 3.9 mmol/L (3.5-5.1); Sodium 137 mmol/L (136-145); TSH (W/Ref FT4) 2.23 uIU/mL (0.36-3.74); Total Protein 6.6 g/dL (6.4-8.2); Troponin I < 50 ng/L (<or=60)
--- NOTE | 2022-12-13 06:45 | RT.EKG_ITS ---
APPROVED REPORT Exam: Resting ECG Reason for Exam: chest pain Patient Location: E HR:83 bpm ECG Measurements Heart Rate [address] 159 P 61 QRSd 95 QRS 29 QT 364 T 28 QTc 428 Conclusion Sinus rhythm...normal P axis, V-rate 60- 99 Low voltage, extremity leads...all extremity leads <0.5mV Physician: no stemi
[2022-12-13] MEDS: nitroGLYcerin 0.4 MG TAB SL ×2 (06:50→07:44)
--- NOTE | 2022-12-13 06:51 | NUR.NOTE ---
Nursing Note: LATE ENTRY Pt comes to the ED c/o CP for several weeks on and off. the pt is currently wearing a holter monitor due to his symptoms. tonight he stated that the pain got intense and began to fell not well. Denies SOB or any neuro deficits.
[2022-12-13 06:54] LABS: D-Dimer 943 ng/mlFEU (<500)
--- NOTE | 2022-12-13 07:00 | DI.CT_ITS ---
Exam(s) CT CHEST PE CTA EXAM: CT CHEST PE CTA CLINICAL HISTORY: chest pain, elevated dimer, r/o pe. TECHNIQUE: Imaging Protocol: CT angiography of the chest was performed using pulmonary embolus homer col. Multi planar reconstructions were performed. CONTRAST MATERIAL: Intravenous: Omnipaque 350 Contrast volume: 100 cc COMPARISON: CT CT ABDOMEN PELVIS W from 04/18/[address] CHEST PE CTA from 05/13/2021 FINDINGS: CHEST: PULMONARY ARTERIES: There are no intraluminal filling defects to suggest acute pulmonary emboli. LUNGS: There are no infiltrates nor evidence of pulmonary infarction.. There are no pleural effusions . MEDIASTINUM: There is no hilar nor mediastinal adenopathy. Visualized thyroid unremarkable. CARDIAC: Heart size is upper normal. There is no pericardial effusion.Caliber of the thoracic aorta is within normal limits. There is no significant shift of the interventricular septum. PARTIALLY VISUALIZED UPPERMOST ABDOMEN: Indeterminate lesion noted in the left hepatic lobe which may be an hemangioma but requires further more dedicated imaging OSSEOUS: No significant osseous lesions.No fractures.. IMPRESSION: 1. No evidence of acute pulmonary emboli. No evidence of pulmonary infarction.No pleural effusions. No infiltrates. 2. Part of the liver is included in the field of view and again reveals what is probably hemangioma i n the left hepatic lobe, previously documented multiple prior CT scans. Report called by myself to ER physician. RADIATION DOSE DELIVERED: 359.51mGy.cm Total DLP DATA REPOSITORY: All CT scans at this facility are submitted to the National Radiology Data Registry (NRDR) Dose Index Registry (DIR) with the [employer] (ACR). RADIATION OPTIMIZATION: All CT scans at this facility use at least one of these dose optimization te chniques: automated exposure control; mA and/or kV adjustment per patient size (includes targeted exa ms where dose is matched to clinical indication); or iterative reconstruction.
--- NOTE | 2022-12-13 07:04 | NUR.NOTE ---
Nursing Note: pt states he continues to ave chest pain, second EKG obtained and given to MD, offered pt a second nitro SL tab, pt declined.
[2022-12-13] MEDS: ACETAMINOPHEN 1,000 MG/100 ML BTL 400 MG IVPB (07:40)
--- NOTE | 2022-12-13 07:50 | NUR.NOTE ---
Nursing Note: pt asked hank gannonther nitro, okay per MD, given by nurse and documented in MAR. PT then started c/o feeling like he was going to pass out, BP was low @ 69/40, 84/49, and 83/56; MD aware, 1000ml bolus of NS started.
[2022-12-13] MEDS: Omnipaque 350 MG/ML 500 ML BTL-Imaging package IJ (08:17)
[2022-12-13] MEDS: Normal Saline - Diluent 50 ML VIAL IJ (08:23)
--- NOTE | 2022-12-13 08:26 | W.EDPROG ---
Date of service: 12/13/22 Time of Service: 08:26 Medical Decision Making I received signout on this 72-year-old male with a history of coronary artery disease and remote prior stents now in the emergency department with chest pain. Patient had no reported change with nitroglycerin. He had an elevated D-dimer and is currently pending a CTA of his chest to assess for PE. His initial troponin is negative and his repeat troponin will be drawn now. I have ordered a stress test on this patient. He has a Holter monitor in place. His chest pain has reportedly woken him up from sleep. Will reassess following CTA repeat troponin and stress test. 8:50 AM Patient in no PE on a CTA chest. He did have a probable hemangioma. Radiology reported that this looks stable. I updated the patient on this incidental finding. He reported that he had previously been aware of this. I have ordered a stress test. Patient feels weak. We will give him a piece of toast prior to stress test. 9:18 AM Patient's troponin returned positive. Will treat him with 324 mg of aspirin and reach out to the transfer center at [facility] [place] [place]. Patient reported that he was stented 10 years ago at [facility] [place] [place]. He has a history of diabetes hypertension hyperlipidemia. He is a former tobacco smoker. He does not have any chest pain at the moment. Given his chest pain at rest and concern for unstable angina/started on heparin drip. 1037 a.m. I spoke with Ave Melo from [facility] [place] [place] cardiology who graciously accepted the patient on behalf of Dr. Vines. She requested 600 mg clopidogrel load. She advised that given that the patient had received IV contrast today that the patient will be appropriate for a heart healthy diet and that patient would likely go for a left heart catheterization tomorrow. We will wait to transfer patient until bed placement called. 3:45 PM Patient was hemodynamically stable during his time in the ED. He was transferred to [facility] [place] [place]. Sign Out Sign Out Data: Sign Out Comment: Chest pain, history of cardiac disease, follow-up on CTA and repeat troponin. Would recommend admission/ops Last updated by Ray Jerome DO at 12/13/22 07:51 Discharge Plan Discharge Details Chief Complaint: Chest Pain Clinical Impression: Non-ST elevation ND (NSTEMI) Primary Care Provider: Renee Tatum ED Provider: Dereck Vizcarra [place] Meds and New Rx's Prescriptions: No Action Shingrix (PF) 50 mcg/0.5 mL suspension for reconstitution 0.5 ml IM ONCE Qty: 1 1RF Rx Instructions: as a single dose. Repeat in 2 months ciclopirox 8 % solution 1 applic topical DAILY 90 Days Qty: 6.6 5RF Rx Instructions: Apply to affected toenails daily. No-Sting Skin-Prep Towelette 1 towel topical 8XD Qty: 300 5RF Metamucil (sugar) Powder 1 tbsp PO DAILY aspirin 325 MG tablet 1 tab PO DAILY Patient Comments: 01/10/18- Holding for now, while on abx, per patient. aj ibuprofen 200 MG tablet 400 mg PO BID PRN cholecalciferol (vitamin D3) [Vitamin D3] 2,000 UNIT capsule 2,000 unit PO DAILY pb sensors 1 unit SQ q 10 days PRNQty: 3 11RF Rx Instructions: E10.8 (DME) Blood Glucose Test Strip 1 ea Miscellaneous 6 times daily Qty: 800 5RF Rx Instructions: AccuCheck Guide Test Strip. E10.65. TESTS 8X/ day. DIAGNOSIS CODE E10.65; E10.8 metoprolol succinate 25 mg tablet extended release 24 hr 25 mg PO DAILY Qty: 90 5RF lisinopril 5 mg tablet 5 mg PO DAILY Qty: 90 12RF atorvastatin 20 mg tablet 20 mg PO DAILY Qty: 90 3RF insulin aspart U-100 [Novolog U-100 Insulin aspart] 100 unit/mL solution 70 unit subcut DAILY Qty: 6 12RF Rx Instructions: VIA pump. E10.8; up to 70 units daily
[2022-12-13 09:16] LABS: Troponin I 97 ng/L (<or=60)
[2022-12-13] MEDS: Heparin in 0.45% NaCl 25,000 UNIT/250 ML BAG 8 UNIT IV (09:27)
[2022-12-13 09:54] LABS: PTT Activated 25.4 sec (21.5-31.9)
--- NOTE | 2022-12-13 10:10 | NUR.NOTE ---
Nursing Note: Pt in bed and on monitor at time of report. Heparin infusing properly. This RN introduced self and spoke with pt and SO. Pt reporting 0/10 CP now. Pt c/o ALMONTE. Pt given warm blankets for comfort. Pt thanked this RN for update and care.
[2022-12-13] MEDS: Clopidogrel 300 MG TAB 600 MG PO (10:52)
[2022-12-13] MEDS: Ondansetron 4 MG/2 ML VIAL IVP (10:52)
--- NOTE | 2022-12-13 11:48 | NUR.NOTE ---
Nursing Note: Blood sugar 162, pt continues to deny chest pain. Heparin infusing appropriately.
--- NOTE | 2022-12-13 12:08 | NUR.NOTE ---
Nursing Note: Report given to Moshe ANDRADE at [facility] room 461.
== END 2022-12-13 12:09 | disposition short-term general hospital (02) ==
PROVIDERS: Student in an Organized Health Care Education/Training Program; Emergency Provider Emergency Medicine; PCP Family Medicine
DX: I21.4 Non-ST elevation (NSTEMI) myocardial infarction (principal); R07.9 Chest pain, unspecified; E10.9 Type 1 diabetes mellitus without complications; I10 Essential (primary) hypertension; I25.10 Atherosclerotic heart disease of native coronary artery without angina pectoris; Z95.5 Presence of coronary angioplasty implant and graft
CPT/HCPCS: 36415; 36416; 71275; 80053; 82962; 93005; 96365; 96366; 96375; 99285; 83880; 84443; 84484; 85025; 85379; 85610; 85730; 93010; J0131; J2405

== ENCOUNTER 2022-12-29 11:01 | Outpatient (RCR) | payer MEDICARE, BC, SELFPAY | END 2022-12-31 23:59 | disposition home or self-care (01) | LOC: CR 11:01 | PROVIDERS: PCP Family Medicine; Visit Provider Internal Medicine Cardiovascular Disease | DX: I25.10 Atherosclerotic heart disease of native coronary artery without angina pectoris (principal) ==

== ENCOUNTER 2022-12-31 11:49 | Outpatient (CLI) | payer MEDICARE, BC, SELFPAY ==
--- NOTE | 2022-12-31 12:31 | W.CARDEVENT ---
Date of service: 12/31/22 Time of Service: 12:31 Cardiac Event Recorder Referring Provider:: Renee Tatum Indications:: Palpitations Cardiac Event Note: This is a cardiac event monitor ordered for palpitations. Patient was monitored for a total period of 6 days. Subsequently he was hospitalized at [facility] for coronary artery bypass grafting Predominant rhythm was sinus with an average heart rate of 83. Minimum was 51, maximum 108 Atrial and ventricular ectopic beats were recorded There was one episode of what appeared to be nonsustained ventricular tachycardia, occurring at 4 AM There was no atrial fibrillation, no high-grade block, no pauses greater than 3 seconds
== END 2022-12-31 11:50 | disposition home or self-care (01) ==
LOC: CARDOPNVT 11:49
PROVIDERS: PCP Family Medicine; Visit Provider Internal Medicine Cardiovascular Disease
DX: R00.2 Palpitations (principal); I49.1 Atrial premature depolarization; I49.3 Ventricular premature depolarization
CPT/HCPCS: 93248

== ENCOUNTER 2023-01-14 10:59 | Outpatient (RCR) | payer MEDICARE, BC, SELFPAY ==
--- NOTE | 2023-01-14 11:00 | HOLTER_ITS ---
APPROVED REPORT Conclusion This is a 48-hour Holter monitor ordered for tachycardia Rhythm throughout is sinus with an average heart rate of 67. Minimum was 57, maximum 86 There were very rare isolated atrial and ventricular ectopic beats There was no atrial fibrillation, no SVT, no pauses greater than 3 seconds
== END 2023-01-31 23:59 | disposition home or self-care (01) ==
LOC: CARDOPNVT 10:59
PROVIDERS: PCP Family Medicine; Visit Provider Family Medicine
DX: R00.0 Tachycardia, unspecified (principal); Z95.1 Presence of aortocoronary bypass graft
CPT/HCPCS: 93227; 93225; 93226

== ENCOUNTER 2023-01-28 09:00 | Outpatient (RCR) | payer MEDICARE, BC, SELFPAY ==
--- NOTE | 2023-01-26 09:45 | RT.EKG_ITS ---
APPROVED REPORT Exam: Resting ECG Reason for Exam: cardiac rehab baseline, peaked p waves on tele Patient Location: O HR:65 bpm ECG Measurements Heart Rate 65 AXIS IA 174 P 61 QRSd 86 QRS 83 QT 676 T 32 QTc 704 Conclusion Sinus rhythm...normal P axis, V-rate 50- 99 Left atrial enlargement...P, P'>60mS, <-0.15mV V1 Borderline right axis deviation...QRS axis ( 81, 90) Low voltage, extremity leads...all extremity leads <0.5mV Nondiagnostic ST-T abnormalities
== END 2023-01-31 23:59 | disposition home or self-care (01) ==
LOC: CR 09:00
PROVIDERS: PCP Family Medicine; Visit Provider Internal Medicine Cardiovascular Disease
DX: Z51.89 Encounter for other specified aftercare (principal); I25.10 Atherosclerotic heart disease of native coronary artery without angina pectoris; I25.2 Old myocardial infarction; I10 Essential (primary) hypertension
CPT/HCPCS: S9472

== ENCOUNTER 2023-02-02 09:13 | Outpatient (RCR) | payer MEDICARE, BC, SELFPAY ==
--- NOTE | 2023-02-02 09:15 | HOLTER_ITS ---
APPROVED REPORT Conclusion This is a 48-hour Holter monitor ordered for coronary artery disease Rhythm throughout was sinus with an average heart rate of 72. Minimum was 60, maximum 97 A total of 5 isolated premature ventricular contractions was seen There were 5 isolated atrial premature beats There was no atrial fibrillation, no SVT, no high-grade AV block, no pauses greater than 3 seconds No patient symptoms were reported
== END 2023-03-03 23:59 | disposition home or self-care (01) ==
LOC: CARDOPNVT 09:13
PROVIDERS: PCP Family Medicine; Visit Provider Family Medicine
DX: I25.10 Atherosclerotic heart disease of native coronary artery without angina pectoris (principal)
CPT/HCPCS: 93225; 93226

== ENCOUNTER 2023-03-02 09:00 | Outpatient (RCR) | payer MEDICARE, BC, SELFPAY | END 2023-03-03 23:59 | disposition home or self-care (01) | LOC: CR 09:00 | PROVIDERS: PCP Family Medicine; Visit Provider Internal Medicine Cardiovascular Disease | DX: I25.10 Atherosclerotic heart disease of native coronary artery without angina pectoris (principal); Z95.1 Presence of aortocoronary bypass graft; Z51.89 Encounter for other specified aftercare | CPT/HCPCS: S9472 ==

== ENCOUNTER 2023-04-01 09:00 | Outpatient (RCR) | payer MEDICARE, BC, SELFPAY | END 2023-04-02 23:59 | disposition home or self-care (01) | LOC: CR 09:00 | PROVIDERS: PCP Family Medicine; Visit Provider Internal Medicine Cardiovascular Disease | DX: I25.2 Old myocardial infarction (principal); I25.10 Atherosclerotic heart disease of native coronary artery without angina pectoris; Z51.89 Encounter for other specified aftercare | CPT/HCPCS: S9472 ==

== ENCOUNTER 2023-04-11 09:00 | Outpatient (RCR) | payer MEDICARE, BC, SELFPAY ==
[2023-04-19 10:09] VITALS: BP 127/77; PULSE 80
== END 2023-05-03 23:59 | disposition home or self-care (01) ==
LOC: CR 09:00
PROVIDERS: PCP Family Medicine; Visit Provider Internal Medicine Cardiovascular Disease
DX: I25.10 Atherosclerotic heart disease of native coronary artery without angina pectoris (principal); Z95.1 Presence of aortocoronary bypass graft; Z51.89 Encounter for other specified aftercare
CPT/HCPCS: S9472

== ENCOUNTER 2023-05-05 03:12 | Outpatient (CLI) | payer MEDICARE, BC, SELFPAY ==
[2023-05-05 12:19] LABS: HCT 52.4 % (40.0-50.0); MCH 27.9 pg (27.0-33.0); MCHC 32.4 % (32.0-36.0); MCV 86 fL (80-95); Platelet Count 197 10^3/uL (130-400); RDW-SD 50.8 fL; WBC 6.46 10^3/uL (4.4-10.8)
[2023-05-05 12:54] LABS: ALT 22 U/L (16-63); AST 19 U/L (15-37); Albumin 4.1 g/dL (3.4-5.0); Alkaline Phosphatase 107 U/L (46-116); BUN 21 mg/dL (7-18); Bilirubin, Total 1.1 mg/dL (0.2-1.0); CREATININE 1.1 mg/dL (0.70-1.30); Calcium 9.4 mg/dL (8.5-10.1); Calculated LDL 109 mg/dL (<100); Chloride 102 mmol/L (98-107); Cholesterol 169 mg/dL (<200); Estimated GFR 71.32 (mL/min/1.73m2); Glucose 130 mg/dL (74-106); HDL Cholesterol 50 mg/dL (40-60); Potassium 4.5 mmol/L (3.5-5.1); Sodium 141 mmol/L (136-145); Triglyceride 52 mg/dL (<150)
== END 2023-05-05 03:13 | disposition home or self-care (01) ==
PROVIDERS: PCP Family Medicine; Visit Provider Family Medicine
DX: E10.9 Type 1 diabetes mellitus without complications (principal); I10 Essential (primary) hypertension; I25.10 Atherosclerotic heart disease of native coronary artery without angina pectoris; Z95.1 Presence of aortocoronary bypass graft
CPT/HCPCS: 36415; 80053; 80061; 85027

== ENCOUNTER 2023-06-02 10:02 | Outpatient (RCR) | payer SELFPAY ==
[2023-05-04 00:12] VITALS: BP 140/84; PULSE 74
[2023-05-05 10:32] VITALS: BP 124/72; PULSE 76
[2023-05-10 10:13] VITALS: BP 118/75; PULSE 79
[2023-05-17 10:20] VITALS: BP 155/92; PULSE 77
[2023-05-19 10:46] VITALS: BP 149/83; PULSE 88
[2023-05-24 10:06] VITALS: BP 136/76; PULSE 78
[2023-05-31 10:12] VITALS: BP 131/81; PULSE 80
[2023-06-02 10:13] VITALS: BP 122/79; PULSE 78
== END 2023-06-02 23:59 | disposition home or self-care (01) ==
LOC: CR 10:02
PROVIDERS: PCP Family Medicine; Visit Provider Internal Medicine Cardiovascular Disease
DX: R69 Illness, unspecified (principal)

== ENCOUNTER 2023-06-23 12:45 | Outpatient (CLI) | payer MEDICARE, BC, SELFPAY ==
[2023-06-23 11:54] LABS: Hemoglobin A1C 7.4 % (<5.7)
== END 2023-06-23 12:46 | disposition home or self-care (01) ==
LOC: LBO 12:45
PROVIDERS: PCP Family Medicine; Visit Provider Family Medicine
DX: E11.9 Type 2 diabetes mellitus without complications (principal)
CPT/HCPCS: 36415; 83036

== ENCOUNTER 2023-06-28 10:00 | Outpatient (RCR) | payer SELFPAY ==
[2023-06-03 00:21] VITALS: BP 140/84; PULSE 74
[2023-06-07 10:00] VITALS: BP 122/77; PULSE 81
[2023-06-09 10:13] VITALS: BP 133/83; PULSE 79
[2023-06-21 09:59] VITALS: BP 137/86; PULSE 84
[2023-06-23 10:14] VITALS: BP 125/78; PULSE 80
[2023-06-28 14:55] VITALS: BP 110/72; PULSE 77
== END 2023-07-03 23:59 | disposition home or self-care (01) ==
LOC: CR 10:00
PROVIDERS: PCP Family Medicine; Visit Provider Internal Medicine Cardiovascular Disease
DX: R69 Illness, unspecified (principal)

== ENCOUNTER 2023-08-02 09:59 | Outpatient (RCR) | payer SELFPAY ==
[2023-07-04 00:21] VITALS: BP 140/84; PULSE 74
[2023-07-05 10:05] VITALS: BP 129/71; PULSE 84
[2023-07-14 11:20] VITALS: BP 109/68; PULSE 78
[2023-07-21 10:07] VITALS: BP 121/73; PULSE 74
[2023-07-26 10:04] VITALS: BP 138/74; PULSE 70
[2023-07-28 10:00] VITALS: BP 120/72; PULSE 74
[2023-08-02 09:57] VITALS: BP 132/79; PULSE 77
== END 2023-08-03 23:59 | disposition home or self-care (01) ==
LOC: CR 09:59
PROVIDERS: PCP Family Medicine; Visit Provider Internal Medicine Interventional Cardiology
DX: R69 Illness, unspecified (principal)

== ENCOUNTER → 2023-08-23 07:55 | Outpatient (BNVA) | payer MEDICARE, BC, SELFPAY | PROVIDERS: PCP Family Medicine; Referring Provider Family Medicine; Visit Provider Podiatrist | DX: L60.3 Nail dystrophy (principal); L84 Corns and callosities; B35.1 Tinea unguium; E11.51 Type 2 diabetes mellitus with diabetic peripheral angiopathy without gangrene | CPT/HCPCS: 99214 ==

== ENCOUNTER 2023-09-01 10:11 | Outpatient (RCR) | payer SELFPAY ==
[2023-08-04 00:25] VITALS: BP 140/84; PULSE 74
[2023-08-04 10:00] VITALS: BP 111/72; PULSE 79
[2023-08-09 11:08] VITALS: BP 126/72; PULSE 74
[2023-08-11 10:17] VITALS: BP 141/81; PULSE 71
[2023-08-16 10:08] VITALS: BP 131/78; PULSE 76
[2023-08-18 10:25] VITALS: BP 140/79; PULSE 73; O2SAT 96
[2023-08-23 13:09] VITALS: BP 143/85; PULSE 79
[2023-08-25 10:33] VITALS: BP 135/78; PULSE 73
[2023-08-30 10:16] VITALS: BP 138/78; PULSE 73
[2023-09-01 12:53] VITALS: BP 145/82; PULSE 74
== END 2023-09-01 23:59 | disposition home or self-care (01) ==
LOC: CR 10:11
PROVIDERS: PCP Family Medicine; Visit Provider Internal Medicine Cardiovascular Disease
DX: R69 Illness, unspecified (principal)

== ENCOUNTER 2023-09-20 04:43 | Outpatient (CLI) | payer MEDICARE, BC, SELFPAY ==
[2023-09-20 09:36] LABS: Hemoglobin A1C 6.9 % (<5.7)
[2023-09-20 09:38] LABS: ALT 30 U/L (16-63); AST 22 U/L (15-37); Alkaline Phosphatase 104 U/L (46-116); Anion Gap 7.1 mmol/L (3-11); BUN 20 mg/dL (7-18); Bilirubin, Total 1.1 mg/dL (0.2-1.0); CO2 33.9 mmol/L (21.0-32.0); Calcium 8.9 mg/dL (8.5-10.1); Calculated LDL 60 mg/dL (<100); Chloride 103 mmol/L (98-107); Cholesterol 119 mg/dL (<200); Estimated GFR 79.97 (mL/min/1.73m2); Glucose 107 mg/dL (74-106); HDL Cholesterol 46 mg/dL (40-60); Potassium 4.4 mmol/L (3.5-5.1); Sodium 144 mmol/L (136-145); Total Protein 6.8 g/dL (6.4-8.2); Triglyceride 65 mg/dL (<150)
== END 2023-09-20 04:44 | disposition home or self-care (01) ==
LOC: LBO 04:44
PROVIDERS: PCP Family Medicine; Visit Provider Internal Medicine Cardiovascular Disease
DX: I10 Essential (primary) hypertension (principal); E11.9 Type 2 diabetes mellitus without complications
CPT/HCPCS: 36415; 80053; 80061; 83036

== ENCOUNTER 2023-09-29 09:56 | Outpatient (RCR) | payer SELFPAY ==
[2023-09-02 00:09] VITALS: BP 140/84; PULSE 74
[2023-09-06 10:03] VITALS: BP 135/82; PULSE 82
[2023-09-08 10:03] VITALS: BP 143/96; PULSE 77
[2023-09-13 10:06] VITALS: BP 141/86; PULSE 81
[2023-09-15 10:05] VITALS: BP 116/68; PULSE 73
[2023-09-20 13:09] VITALS: BP 121/73; PULSE 77
[2023-09-22 10:03] VITALS: BP 129/86; PULSE 76
[2023-09-27 10:09] VITALS: BP 126/85; PULSE 77
[2023-09-29 10:22] VITALS: BP 126/75; PULSE 72
== END 2023-10-02 23:59 | disposition home or self-care (01) ==
LOC: CR 09:56
PROVIDERS: PCP Family Medicine; Visit Provider Internal Medicine Cardiovascular Disease
DX: R69 Illness, unspecified (principal)

== ENCOUNTER → 2023-10-06 11:26 | Outpatient (CLI) | payer MEDICARE, BC, SELFPAY ==
--- NOTE | 2023-10-06 09:45 | DI.RAD_ITS ---
Exam(s) XR FOOT RT COMPLETE EXAM: XR FOOT RT COMPLETE CLINICAL HISTORY: M79.671 pain in rt foot, lateral 5th MT pain ? sesamoid vs bunion. TECHNIQUE: 2D digital imaging was performed. Three views. COMPARISON: No exams were available for comparison FINDINGS: BONES: No acute fracture is present. No bony destructive lesion is seen. JOINTS: No dislocation present. Moderate to severe degenerative changes of the 1st MTP joint with pe riarticular spurring. No hallux valgus. No significant degenerative changes elsewhere. SOFT TISSUE: Vascular calcifications. IMPRESSION: Moderate severe degenerative changes of the 1st MTP joint. DATA REPOSITORY: RADIATION DOSE DELIVERED:
== END ==
PROVIDERS: PCP Family Medicine; Visit Provider Family Medicine
DX: M79.671 Pain in right foot (principal); M77.41 Metatarsalgia, right foot; M19.071 Primary osteoarthritis, right ankle and foot
CPT/HCPCS: 73630

== ENCOUNTER 2023-11-01 10:24 | Outpatient (RCR) | payer SELFPAY ==
[2023-10-04 10:52] VITALS: BP 136/82; PULSE 64
[2023-10-06 11:34] VITALS: BP 148/95; PULSE 81
[2023-10-11 10:15] VITALS: BP 141/91; PULSE 81
[2023-10-13 09:53] VITALS: BP 127/80; PULSE 78
[2023-10-18 10:09] VITALS: BP 139/75; PULSE 71
[2023-10-20 09:56] VITALS: BP 123/80; PULSE 78
[2023-10-25 10:03] VITALS: BP 115/71; PULSE 72
[2023-10-27 10:41] VITALS: BP 156/87; PULSE 71
[2023-11-01 10:26] VITALS: BP 119/69; PULSE 80
== END 2023-11-01 23:59 | disposition home or self-care (01) ==
LOC: CR 10:24
PROVIDERS: PCP Family Medicine; Visit Provider Internal Medicine Cardiovascular Disease
DX: R69 Illness, unspecified (principal)

== ENCOUNTER 2023-12-01 10:03 | Outpatient (RCR) | payer SELFPAY ==
[2023-11-02 00:13] VITALS: BP 119/69; PULSE 80
[2023-11-03 09:57] VITALS: BP 115/73; PULSE 80; O2SAT 98
[2023-11-08 11:28] VITALS: BP 120/77; PULSE 76
[2023-11-10 10:58] VITALS: BP 118/72; PULSE 73
[2023-11-15 10:19] VITALS: BP 122/68; PULSE 71
[2023-11-17 10:34] VITALS: BP 112/71; PULSE 68
[2023-11-22 10:16] VITALS: BP 141/81; PULSE 69
[2023-11-24 10:10] VITALS: BP 134/86; PULSE 81
[2023-11-29 10:08] VITALS: BP 134/79; PULSE 73
[2023-12-01 10:08] VITALS: BP 162/93; PULSE 69
== END 2023-12-02 23:59 | disposition home or self-care (01) ==
LOC: CR 10:03
PROVIDERS: PCP Family Medicine; Visit Provider Internal Medicine Cardiovascular Disease
DX: R69 Illness, unspecified (principal)

== ENCOUNTER 2023-12-29 10:22 | Outpatient (RCR) | payer SELFPAY ==
[2023-12-03 00:22] VITALS: BP 119/69; PULSE 80
[2023-12-06 10:36] VITALS: BP 125/74; PULSE 72
[2023-12-08 10:19] VITALS: BP 129/74; PULSE 80
[2023-12-13 11:55] VITALS: BP 135/76; PULSE 72
[2023-12-15 12:26] VITALS: BP 148/97; PULSE 77
[2023-12-20 13:19] VITALS: BP 111/68; PULSE 78
[2023-12-27 10:25] VITALS: BP 140/84; PULSE 80
[2023-12-29 10:12] VITALS: BP 132/87; PULSE 75
== END 2024-01-01 23:59 | disposition home or self-care (01) ==
LOC: CR 10:22
PROVIDERS: PCP Family Medicine; Visit Provider Internal Medicine Cardiovascular Disease
DX: R69 Illness, unspecified (principal)

== ENCOUNTER 2024-01-26 10:00 | Outpatient (RCR) | payer SELFPAY ==
[2024-01-03 10:31] VITALS: BP 153/89; PULSE 66
[2024-01-10 09:57] VITALS: BP 115/73; PULSE 74
[2024-01-17 10:17] VITALS: BP 134/85; PULSE 71
[2024-01-19 13:33] VITALS: BP 124/78; PULSE 77
[2024-01-24 11:17] VITALS: BP 132/79; PULSE 69
[2024-01-26 10:15] VITALS: BP 129/74; PULSE 71
== END 2024-02-01 23:59 | disposition home or self-care (01) ==
LOC: CR 10:00
PROVIDERS: PCP Family Medicine; Visit Provider Internal Medicine Cardiovascular Disease
DX: R69 Illness, unspecified (principal)

== ENCOUNTER → 2024-02-07 07:59 | Outpatient (BNVA) | payer MEDICARE, BC, SELFPAY | PROVIDERS: PCP Family Medicine; Referring Provider Family Medicine; Visit Provider Podiatrist | DX: L60.3 Nail dystrophy (principal); E10.39 Type 1 diabetes mellitus with other diabetic ophthalmic complication; L84 Corns and callosities; E10.43 Type 1 diabetes mellitus with diabetic autonomic (poly)neuropathy; B35.1 Tinea unguium; B07.0 Plantar wart | CPT/HCPCS: 17110 ==

== ENCOUNTER 2024-03-01 10:10 | Outpatient (RCR) | payer SELFPAY ==
[2024-02-02 00:33] VITALS: BP 129/74; PULSE 71
[2024-02-02 10:00] VITALS: BP 122/81; PULSE 68
[2024-02-07 13:47] VITALS: BP 121/73; PULSE 71
[2024-02-09 10:28] VITALS: BP 139/86; PULSE 67
[2024-02-16 08:08] VITALS: BP 120/66; PULSE 69
[2024-02-23 10:03] VITALS: BP 136/81; PULSE 77
[2024-02-28 10:02] VITALS: BP 131/82; PULSE 82
[2024-03-01 10:29] VITALS: BP 133/80; PULSE 68
== END 2024-03-03 23:59 | disposition home or self-care (01) ==
LOC: CR 10:10
PROVIDERS: PCP Family Medicine; Visit Provider Internal Medicine Cardiovascular Disease
DX: R69 Illness, unspecified (principal)

== ENCOUNTER 2024-03-08 15:35 | Outpatient (CLI) | payer MEDICARE, BC, SELFPAY ==
--- NOTE | 2024-03-08 14:45 | DI.RAD_ITS ---
Exam(s) XR CHEST 2V PA LATERAL EXAM: XR CHEST 2V PA LATERAL CLINICAL HISTORY: sob, s/p cabg, h/o asthma R06.02. TECHNIQUE: 2D digital imaging was performed. COMPARISON: CR XR CHEST 2V PA LATERAL from 12/06/[address] CHEST PE CTA from 12/13/2022 FINDINGS: 2 views: There is been interval sternotomy. There is sternotomy wires now evident as well as evidence of CABG . Heart size remains normal and the mediastinum is not widened. Lungs are clear. No infiltrates nor pleural effusions. No evidence of pulmonary edema. No fractures. IMPRESSION: No acute pulmonary findings. Interval sternotomy/CABG. Heart size remains normal. No CHF. DATA REPOSITORY: RADIATION DOSE DELIVERED:
== END 2024-03-08 15:55 ==
LOC: DI 15:36
PROVIDERS: PCP Family Medicine; Visit Provider Family Medicine
DX: R06.02 Shortness of breath (principal)
CPT/HCPCS: 71046

== ENCOUNTER 2024-03-29 10:00 | Outpatient (RCR) | payer SELFPAY ==
[2024-03-04 00:31] VITALS: BP 129/74; PULSE 71
[2024-03-13 10:13] VITALS: BP 148/80; PULSE 69
[2024-03-15 10:30] VITALS: BP 141/80; PULSE 75
[2024-03-20 10:55] VITALS: BP 133/78; PULSE 74
[2024-03-22 10:56] VITALS: BP 137/84; PULSE 79
[2024-03-27 10:27] VITALS: BP 142/84; PULSE 66
[2024-03-29 10:03] VITALS: BP 127/77; PULSE 75
== END 2024-04-02 23:59 | disposition home or self-care (01) ==
LOC: CR 10:00
PROVIDERS: PCP Family Medicine; Visit Provider Internal Medicine Cardiovascular Disease
DX: R69 Illness, unspecified (principal)

== ENCOUNTER 2024-04-02 15:35 | Outpatient (REF) | payer MEDICARE, BC, SELFPAY ==
[2024-04-02 12:46] LABS: COMMENT (LAB VIEW ONLY) 53.79 mg/dL; Microalb ug/mg Crea 17.5 ug/mg Cr
== END 2024-04-02 15:36 | disposition home or self-care (01) ==
LOC: LBN 15:35
PROVIDERS: PCP Family Medicine; Visit Provider Family Medicine
DX: E11.9 Type 2 diabetes mellitus without complications (principal); Z23 Encounter for immunization; E11.51 Type 2 diabetes mellitus with diabetic peripheral angiopathy without gangrene
CPT/HCPCS: 82043; 82570

== ENCOUNTER 2024-04-23 02:17 | Outpatient (CLI) | payer MEDICARE, BC, SELFPAY ==
[2024-04-23 12:37] LABS: HCT 48.7 % (40.0-50.0); HGB 16.8 g/dL (13.5-17.5); MCH 32.8 pg (27.0-33.0); MCHC 34.5 % (32.0-36.0); MCV 95 fL (80-95); MPV 10.7 fL (8.0-11.0); Platelet Count 181 10^3/uL (130-400); RBC 5.12 10^6/uL (4.36-5.78); RDW 11.9 % (11.8-14.1); RDW-SD 41.4 fL; WBC 4.85 10^3/uL (4.4-10.8)
[2024-04-23 13:11] LABS: ALT 32 U/L (16-63); AST 24 U/L (15-37); Albumin 3.8 g/dL (3.4-5.0); Alkaline Phosphatase 100 U/L (46-116); Anion Gap 5.3 mmol/L (3-11); BUN 17 mg/dL (7-18); Bilirubin, Total 0.99 mg/dL (0.2-1.0); CO2 32.7 mmol/L (21.0-32.0); CREATININE 0.9 mg/dL (0.70-1.30); Chloride 108 mmol/L (98-107); Estimated GFR 90.18 (mL/min/1.73m2); Glucose 103 mg/dL (74-106); Sodium 146 mmol/L (136-145); Total Protein 6.3 g/dL (6.4-8.2)
== END 2024-04-23 02:18 | disposition home or self-care (01) ==
LOC: LOS 02:17
PROVIDERS: PCP Family Medicine; Visit Provider Family Medicine
DX: I10 Essential (primary) hypertension (principal); E55.9 Vitamin D deficiency, unspecified
CPT/HCPCS: 36415; 80053; 82306; 85027

== ENCOUNTER 2024-05-03 09:54 | Outpatient (RCR) | payer SELFPAY ==
[2024-04-03 13:23] VITALS: BP 138/82; PULSE 68
[2024-04-05 10:03] VITALS: BP 119/79; PULSE 83; O2SAT 97
[2024-04-10 10:06] VITALS: BP 136/87; PULSE 69
[2024-04-17 10:00] VITALS: BP 116/78; PULSE 80
[2024-04-19 09:51] VITALS: BP 120/74; PULSE 76; O2SAT 96
[2024-04-24 10:14] VITALS: BP 134/81; PULSE 72
[2024-04-26 10:00] VITALS: BP 137/85; PULSE 76; O2SAT 96
[2024-05-01 10:14] VITALS: BP 122/73; PULSE 77
[2024-05-03 11:00] VITALS: BP 139/81; PULSE 73
== END 2024-05-03 23:59 | disposition home or self-care (01) ==
LOC: CR 09:54
PROVIDERS: PCP Family Medicine; Visit Provider Internal Medicine Cardiovascular Disease
DX: R69 Illness, unspecified (principal)

== ENCOUNTER 2024-05-29 10:00 | Outpatient (RCR) | payer SELFPAY ==
[2024-05-04 00:15] VITALS: BP 139/81; PULSE 73
[2024-05-10 10:17] VITALS: BP 135/82; PULSE 67
[2024-05-15 09:59] VITALS: BP 139/85; PULSE 76
[2024-05-22 10:10] VITALS: BP 120/69; PULSE 75
[2024-05-24 10:11] VITALS: BP 126/74; PULSE 71
[2024-05-29 13:44] VITALS: BP 133/83; PULSE 76
== END 2024-06-02 23:59 | disposition home or self-care (01) ==
LOC: CR 10:00
PROVIDERS: PCP Family Medicine; Visit Provider Internal Medicine Cardiovascular Disease
DX: R69 Illness, unspecified (principal)

== ENCOUNTER → 2024-06-05 07:56 | Outpatient (BNVA) | payer MEDICARE, BC, SELFPAY | PROVIDERS: PCP Family Medicine; Referring Provider Family Medicine; Visit Provider Podiatrist | DX: L60.3 Nail dystrophy (principal); M79.671 Pain in right foot; M79.672 Pain in left foot; B07.0 Plantar wart; L84 Corns and callosities; E10.39 Type 1 diabetes mellitus with other diabetic ophthalmic complication; E10.43 Type 1 diabetes mellitus with diabetic autonomic (poly)neuropathy; B35.1 Tinea unguium | CPT/HCPCS: 11719; 17110 ==

== ENCOUNTER 2024-07-03 10:47 | Outpatient (RCR) | payer SELFPAY ==
[2024-06-03 00:07] VITALS: BP 139/81; PULSE 73
[2024-06-05 10:42] VITALS: BP 139/83; PULSE 67
[2024-06-07 10:03] VITALS: BP 133/84; PULSE 78
[2024-06-12 10:09] VITALS: BP 124/78; PULSE 75
[2024-06-14 10:01] VITALS: BP 133/85; PULSE 73
[2024-06-19 10:04] VITALS: BP 127/76; PULSE 71
[2024-06-21 10:27] VITALS: BP 151/88; PULSE 76
[2024-06-21 11:10] VITALS: BP 143/88
[2024-06-26 10:05] VITALS: BP 137/75; PULSE 75
[2024-07-03 10:57] VITALS: BP 113/71; PULSE 72
== END 2024-07-03 23:59 | disposition home or self-care (01) ==
LOC: CR 10:47
PROVIDERS: PCP Family Medicine; Visit Provider Internal Medicine Cardiovascular Disease
DX: R69 Illness, unspecified (principal)

== ENCOUNTER 2024-08-02 10:11 | Outpatient (RCR) | payer SELFPAY ==
[2024-07-04 00:06] VITALS: BP 139/81; PULSE 73
[2024-07-05 10:26] VITALS: BP 133/82; PULSE 77
[2024-07-10 10:07] VITALS: BP 133/75; PULSE 71
[2024-07-12 10:39] VITALS: BP 145/82; PULSE 72
[2024-07-17 10:08] VITALS: BP 117/73; PULSE 72
[2024-07-19 10:09] VITALS: BP 150/91; PULSE 70; O2SAT 97
[2024-07-24 10:29] VITALS: BP 108/69; PULSE 77
[2024-07-26 10:23] VITALS: BP 123/75; PULSE 73
[2024-07-31 10:16] VITALS: BP 120/72; PULSE 67
[2024-08-02 10:23] VITALS: BP 132/78; PULSE 66; O2SAT 97
== END 2024-08-03 23:59 | disposition home or self-care (01) ==
LOC: CR 10:11
PROVIDERS: PCP Family Medicine; Visit Provider Internal Medicine Cardiovascular Disease
DX: R69 Illness, unspecified (principal)

== ENCOUNTER 2024-08-28 10:16 | Outpatient (RCR) | payer SELFPAY ==
[2024-08-07 10:25] VITALS: BP 123/76; PULSE 68
[2024-08-09 09:57] VITALS: BP 118/68; PULSE 76
[2024-08-14 10:45] VITALS: BP 135/80; PULSE 69
[2024-08-16 09:59] VITALS: BP 133/78; PULSE 66
[2024-08-21 10:22] VITALS: BP 123/75; PULSE 73
[2024-08-28 10:20] VITALS: BP 119/71; PULSE 72
== END 2024-08-31 23:59 | disposition home or self-care (01) ==
LOC: CR 10:16
PROVIDERS: PCP Family Medicine; Visit Provider Internal Medicine Cardiovascular Disease
DX: R69 Illness, unspecified (principal)

== ENCOUNTER 2024-09-03 08:20 | Outpatient (CLI) | payer MEDICARE, BC, SELFPAY ==
[2024-09-03 13:23] LABS: ALT 39 U/L (16-63); AST 26 U/L (15-37); Albumin 4.2 g/dL (3.4-5.0); Alkaline Phosphatase 113 U/L (46-116); Anion Gap 4.1 mmol/L (3-11); BUN 15 mg/dL (7-18); Bilirubin, Total 1.47 mg/dL (0.2-1.0); CO2 34.9 mmol/L (21.0-32.0); CREATININE 0.9 mg/dL (0.70-1.30); Calcium 9.7 mg/dL (8.5-10.1); Calculated LDL 63 mg/dL (<100); Chloride 104 mmol/L (98-107); Cholesterol 127 mg/dL (<200); Estimated GFR 90.18 (mL/min/1.73m2); Glucose 147 mg/dL (74-106); HDL Cholesterol 52 mg/dL (>or=40); Potassium 4.9 mmol/L (3.5-5.1); Sodium 143 mmol/L (136-145); Total Protein 6.9 g/dL (6.4-8.2); Triglyceride 61 mg/dL (<150); Vitamin B12 374 pg/mL (193-986)
== END 2024-09-03 08:21 | disposition home or self-care (01) ==
LOC: LOS 08:21
PROVIDERS: PCP Family Medicine; Referring Provider Family Medicine; Visit Provider Family Medicine
DX: I10 Essential (primary) hypertension (principal); E53.8 Deficiency of other specified B group vitamins; Z95.1 Presence of aortocoronary bypass graft
CPT/HCPCS: 36415; 80053; 80061; 82607

== ENCOUNTER 2024-09-27 10:02 | Outpatient (RCR) | payer SELFPAY ==
[2024-09-01 00:20] VITALS: BP 119/71; PULSE 72
[2024-09-06 10:05] VITALS: BP 117/71; PULSE 76
[2024-09-13 10:03] VITALS: BP 123/77; PULSE 78; O2SAT 98
[2024-09-18 10:15] VITALS: BP 115/75; PULSE 74
[2024-09-20 10:26] VITALS: BP 125/81; PULSE 74
[2024-09-25 11:03] VITALS: BP 117/69; PULSE 77
[2024-09-27 10:08] VITALS: BP 123/73; PULSE 68; O2SAT 97
== END 2024-10-01 23:59 | disposition home or self-care (01) ==
LOC: CR 10:02
PROVIDERS: PCP Family Medicine; Visit Provider Internal Medicine Cardiovascular Disease
DX: R69 Illness, unspecified (principal)

== ENCOUNTER → 2024-10-09 07:52 | Outpatient (BNVA) | payer MEDICARE, BC, SELFPAY | PROVIDERS: PCP Family Medicine; Referring Provider Family Medicine; Visit Provider Podiatrist | DX: L60.3 Nail dystrophy (principal); B07.0 Plantar wart; E10.39 Type 1 diabetes mellitus with other diabetic ophthalmic complication; E10.43 Type 1 diabetes mellitus with diabetic autonomic (poly)neuropathy; L84 Corns and callosities; B35.1 Tinea unguium; M79.671 Pain in right foot; M79.672 Pain in left foot | CPT/HCPCS: 17110 ==

== ENCOUNTER 2024-10-30 10:27 | Outpatient (RCR) | payer SELFPAY ==
[2024-10-02 00:09] VITALS: BP 119/71; PULSE 72
[2024-10-02 11:10] VITALS: BP 123/67; PULSE 59
[2024-10-04 10:03] VITALS: BP 138/84; PULSE 71; O2SAT 96
[2024-10-09 10:47] VITALS: BP 123/71; PULSE 70
[2024-10-11 10:00] VITALS: BP 109/68; PULSE 71; O2SAT 97
[2024-10-16 10:50] VITALS: BP 125/80; PULSE 75
[2024-10-18 10:21] VITALS: BP 129/82; PULSE 70
[2024-10-23 12:31] VITALS: BP 116/75; PULSE 68
[2024-10-25 10:11] VITALS: BP 126/76; PULSE 71
[2024-10-30 10:29] VITALS: BP 130/79; PULSE 70
== END 2024-10-31 23:59 | disposition home or self-care (01) ==
LOC: CR 10:27
PROVIDERS: PCP Family Medicine; Visit Provider Internal Medicine Cardiovascular Disease
DX: R69 Illness, unspecified (principal)

== ENCOUNTER 2024-11-22 10:07 | Outpatient (RCR) | payer SELFPAY ==
[2024-11-01 00:17] VITALS: BP 119/71; PULSE 72
[2024-11-01 11:08] VITALS: BP 117/73; PULSE 73
[2024-11-06 10:23] VITALS: BP 125/72; PULSE 77
[2024-11-08 10:24] VITALS: BP 119/64; PULSE 71
[2024-11-13 12:01] VITALS: BP 127/72; PULSE 69
[2024-11-20 10:17] VITALS: BP 156/82; PULSE 63
[2024-11-22 10:10] VITALS: BP 128/79; PULSE 71
== END 2024-12-01 23:59 | disposition home or self-care (01) ==
LOC: CR 10:07
PROVIDERS: PCP Family Medicine; Visit Provider Internal Medicine Cardiovascular Disease
DX: R69 Illness, unspecified (principal)

== ENCOUNTER 2024-12-27 10:00 | Outpatient (RCR) | payer SELFPAY ==
[2024-12-02 00:10] VITALS: BP 119/71; PULSE 72
[2024-12-04 11:14] VITALS: BP 113/70; PULSE 65
[2024-12-06 10:20] VITALS: BP 120/80; PULSE 88
[2024-12-11 10:31] VITALS: BP 123/69; PULSE 68
[2024-12-13 11:27] VITALS: BP 124/74; PULSE 71
[2024-12-18 10:08] VITALS: BP 120/70; PULSE 65
[2024-12-20 10:40] VITALS: BP 132/74; PULSE 70
[2024-12-25 10:19] VITALS: BP 112/73; PULSE 76
[2024-12-27 10:00] VITALS: BP 128/71; PULSE 64
== END 2024-12-31 23:59 | disposition home or self-care (01) ==
LOC: CR 10:00
PROVIDERS: PCP Family Medicine; Visit Provider Internal Medicine Cardiovascular Disease
DX: R69 Illness, unspecified (principal)

== ENCOUNTER 2025-01-08 10:59 | Outpatient (CLI) | payer MEDICARE, BC, SELFPAY ==
[2025-01-09 11:27] LABS: Lyme Ab w Rflx to Lyme Confirm Negative (Negative)
[2025-01-10 22:19] LABS: B. miyamotoi PCR Negative (Negative); Babesia divergens/MO-1 Negative (Negative); Ehrlichia muris eauclairensis Negative (Negative)
== END 2025-01-08 11:00 | disposition home or self-care (01) ==
LOC: LBO 11:00
PROVIDERS: PCP Family Medicine; Visit Provider Family Medicine
DX: R21 Rash and other nonspecific skin eruption (principal)
CPT/HCPCS: 36415; 87798; 86618

== ENCOUNTER 2025-01-31 10:00 | Outpatient (RCR) | payer SELFPAY ==
[2025-01-01 10:16] VITALS: BP 133/79; PULSE 68
[2025-01-03 10:24] VITALS: BP 132/79; PULSE 73; O2SAT 97
[2025-01-08 10:03] VITALS: BP 111/72; PULSE 82
[2025-01-15 10:41] VITALS: BP 130/78; PULSE 71
[2025-01-22 10:15] VITALS: BP 139/83; PULSE 64
[2025-01-24 10:59] VITALS: BP 125/75; PULSE 68
[2025-01-29 10:26] VITALS: BP 115/73; PULSE 72
[2025-01-31 10:05] VITALS: BP 136/81; PULSE 67
== END 2025-01-31 23:59 | disposition home or self-care (01) ==
LOC: CR 10:00
PROVIDERS: PCP Family Medicine; Visit Provider Internal Medicine Cardiovascular Disease
DX: R69 Illness, unspecified (principal)

== ENCOUNTER → 2025-02-05 07:55 | Outpatient (BNVA) | payer MEDICARE, BC, SELFPAY | PROVIDERS: PCP Family Medicine; Referring Provider Family Medicine; Visit Provider Podiatrist | DX: L60.3 Nail dystrophy (principal); B35.1 Tinea unguium; B35.3 Tinea pedis; M79.671 Pain in right foot; L84 Corns and callosities; E10.39 Type 1 diabetes mellitus with other diabetic ophthalmic complication; E10.43 Type 1 diabetes mellitus with diabetic autonomic (poly)neuropathy; E10.51 Type 1 diabetes mellitus with diabetic peripheral angiopathy without gangrene | CPT/HCPCS: 99213 ==

== ENCOUNTER 2025-02-19 10:00 | Outpatient (RCR) | payer SELFPAY ==
[2025-02-01 00:11] VITALS: BP 136/81; PULSE 67
[2025-02-05 10:11] VITALS: BP 144/84; PULSE 70
[2025-02-07 10:44] VITALS: BP 121/75; PULSE 72
[2025-02-12 10:00] VITALS: BP 121/71; PULSE 78
[2025-02-19 11:18] VITALS: BP 153/81; PULSE 65
== END 2025-03-03 23:59 | disposition home or self-care (01) ==
LOC: CR 10:00
PROVIDERS: PCP Family Medicine; Visit Provider Internal Medicine Cardiovascular Disease
DX: R69 Illness, unspecified (principal)

== ENCOUNTER 2025-03-26 00:48 | Outpatient (CLI) | payer MEDICARE, SELFPAY ==
[2025-03-26 16:20] LABS: Calculated LDL 61 mg/dL (<100); Cholesterol 114 mg/dL (<200); HDL Cholesterol 42 mg/dL (>or=40); Triglyceride 58 mg/dL (<150)
== END 2025-03-26 00:49 | disposition home or self-care (01) ==
LOC: LBO 00:48
PROVIDERS: PCP Family Medicine; Visit Provider Internal Medicine Cardiovascular Disease
DX: I25.10 Atherosclerotic heart disease of native coronary artery without angina pectoris (principal)
CPT/HCPCS: 36415; 80061; 83695

== ENCOUNTER 2025-03-26 10:00 | Outpatient (RCR) | payer SELFPAY ==
[2025-03-12 10:12] VITALS: BP 115/72; PULSE 77
[2025-03-14 10:30] VITALS: BP 110/69; PULSE 81
[2025-03-19 10:41] VITALS: BP 135/76; PULSE 79
[2025-03-21 10:32] VITALS: BP 127/73; PULSE 75
[2025-03-26 10:08] VITALS: BP 122/75; PULSE 78
== END 2025-04-02 23:59 | disposition home or self-care (01) ==
LOC: CR 10:00
PROVIDERS: PCP Family Medicine; Visit Provider Internal Medicine Cardiovascular Disease
DX: R69 Illness, unspecified (principal)

== ENCOUNTER 2025-04-17 00:12 | Outpatient (CLI) | payer MEDICARE, BC, SELFPAY ==
--- NOTE | 2025-04-17 06:15 | DI.RAD_ITS ---
Exam(s) XR WRIST LT COMPLETE EXAM: XR WRIST LT COMPLETE CLINICAL HISTORY: ganglion vs bone chip,[id number]. TECHNIQUE: 2D digital imaging was performed. Three views. COMPARISON: No exams were available for comparison FINDINGS: BONES: No acute fracture is present. No bony destructive lesion is seen. JOINTS: The carpal bones are normally aligned. There are mild to moderate degenerative changes at the 1st carpal metacarpal joint. There are mild degenerative changes of the distal radial ulnar joint. Chondrocalcinosis of the triangular fibrocartilage. SOFT TISSUE: Vascular calcifications. IMPRESSION: Mild degenerative changes and chondrocalcinosis. DATA REPOSITORY: RADIATION DOSE DELIVERED:
== END 2025-04-17 00:32 ==
LOC: DI 00:12
PROVIDERS: PCP Family Medicine; Visit Provider Family Medicine
DX: M67.432 Ganglion, left wrist (principal); M19.032 Primary osteoarthritis, left wrist; M11.232 Other chondrocalcinosis, left wrist
CPT/HCPCS: 73110

== ENCOUNTER 2025-04-30 10:00 | Outpatient (RCR) | payer SELFPAY ==
[2025-04-03 00:10] VITALS: BP 122/75; PULSE 78
[2025-04-04 10:59] VITALS: BP 134/77; PULSE 71
[2025-04-09 10:06] VITALS: BP 132/77; PULSE 80
[2025-04-18 10:15] VITALS: BP 128/77; PULSE 83
[2025-04-23 10:28] VITALS: BP 121/74; PULSE 75
[2025-04-25 10:06] VITALS: BP 139/87; PULSE 70
[2025-04-30 10:23] VITALS: BP 144/78; PULSE 75
== END 2025-05-03 23:59 | disposition home or self-care (01) ==
LOC: CR 10:00
PROVIDERS: PCP Family Medicine; Visit Provider Internal Medicine Cardiovascular Disease
DX: R69 Illness, unspecified (principal)

== ENCOUNTER 2025-05-21 10:00 | Outpatient (RCR) | payer SELFPAY ==
[2025-05-04 00:06] VITALS: BP 144/78; PULSE 75
[2025-05-09 11:27] VITALS: BP 123/75; PULSE 83
[2025-05-14 10:19] VITALS: BP 145/80; PULSE 76
[2025-05-16 10:27] VITALS: BP 133/82; PULSE 80
[2025-05-21 10:25] VITALS: BP 116/67; PULSE 77
== END 2025-06-02 23:59 | disposition home or self-care (01) ==
LOC: CR 10:00
PROVIDERS: PCP Family Medicine; Visit Provider Internal Medicine Cardiovascular Disease
DX: R69 Illness, unspecified (principal)

== ENCOUNTER → 2025-06-04 07:56 | Outpatient (BNVA) | payer MEDICARE, BC, SELFPAY | PROVIDERS: PCP Family Medicine; Referring Provider Family Medicine; Visit Provider Podiatrist | DX: L60.3 Nail dystrophy (principal); B35.1 Tinea unguium; B35.3 Tinea pedis; E10.39 Type 1 diabetes mellitus with other diabetic ophthalmic complication; E10.43 Type 1 diabetes mellitus with diabetic autonomic (poly)neuropathy; E10.51 Type 1 diabetes mellitus with diabetic peripheral angiopathy without gangrene; M79.671 Pain in right foot; M79.672 Pain in left foot; L84 Corns and callosities; M76.62 Achilles tendinitis, left leg; S93.402A Sprain of unspecified ligament of left ankle, initial encounter; X58.XXXA Exposure to other specified factors, initial encounter | CPT/HCPCS: 11755; 99213 ==

== ENCOUNTER → 2025-06-10 07:49 | Outpatient (BNVA) | payer MEDICARE, BC, SELFPAY | PROVIDERS: PCP Family Medicine; Referring Provider Family Medicine; Visit Provider Student in an Organized Health Care Education/Training Program | DX: M11.232 Other chondrocalcinosis, left wrist (principal); M77.8 Other enthesopathies, not elsewhere classified | CPT/HCPCS: 99213 ==

== ENCOUNTER → 2025-06-18 08:02 | Outpatient (BNVA) | payer MEDICARE, BC, SELFPAY | PROVIDERS: PCP Family Medicine; Referring Provider Family Medicine; Visit Provider Podiatrist | DX: L60.3 Nail dystrophy (principal); B35.1 Tinea unguium; B35.3 Tinea pedis; M76.62 Achilles tendinitis, left leg; E10.43 Type 1 diabetes mellitus with diabetic autonomic (poly)neuropathy; E10.51 Type 1 diabetes mellitus with diabetic peripheral angiopathy without gangrene; E10.39 Type 1 diabetes mellitus with other diabetic ophthalmic complication; L84 Corns and callosities; S93.402D Sprain of unspecified ligament of left ankle, subsequent encounter; X58.XXXD Exposure to other specified factors, subsequent encounter | CPT/HCPCS: 99213 ==

== ENCOUNTER 2025-07-02 10:00 | Outpatient (RCR) | payer SELFPAY ==
[2025-06-03 00:16] VITALS: BP 116/67; PULSE 77
[2025-06-11 10:33] VITALS: BP 144/80; PULSE 71
[2025-06-13 11:11] VITALS: BP 124/76; PULSE 80
[2025-06-18 10:54] VITALS: BP 135/78; PULSE 78
[2025-06-20 11:20] VITALS: BP 136/84; PULSE 79
[2025-06-25 11:17] VITALS: BP 117/74; PULSE 86
[2025-07-02 11:38] VITALS: BP 146/85; PULSE 82
== END 2025-07-03 23:59 | disposition home or self-care (01) ==
LOC: CR 10:00
PROVIDERS: PCP Family Medicine; Visit Provider Internal Medicine Cardiovascular Disease
DX: R69 Illness, unspecified (principal)